=== PATIENT | female | born 1950 | race Caucasian/White ===

== ENCOUNTER 2020-12-06 08:46 | Outpatient (REF) | payer MEDICARE, SELFPAY ==
[2020-12-06 11:41] LABS: Alanine Aminotransferase 18 U/L (0-31); Albumin Level 4.5 g/dL (3.5-5.0); Alkaline Phosphatase 65 U/L (39-117); Anion Gap 15 (12-20); Aspartate Amino Transferase 24 U/L (5-31); Bilirubin Total 1.3 mg/dL (0.0-1.0); Blood Urea Nitrogen 18 mg/dL (9-16); Calcium 9.2 mg/dL (8.4-10.2); Carbon Dioxide 24 mmol/L (22-29); Chloride 105 mmol/L (96-108); Estimated Glomerular Filt Rate > 60; Glucose Random 88 mg/dL (60-115); Potassium 4.3 mmol/L (3.3-5.1); Sodium 140 mmol/L (135-145); Total Protein 7.5 g/dL (6.5-8.0)
== END 2020-12-06 08:47 | disposition home or self-care (01) ==
LOC: HO.HMGCLDS 08:46
PROVIDERS: PCP Internal Medicine; Visit Provider Internal Medicine
DX: E78.9 Disorder of lipoprotein metabolism, unspecified (principal); I10 Essential (primary) hypertension
CPT/HCPCS: 36415; 80053

== ENCOUNTER 2021-08-08 07:43 | Outpatient (REF) | payer MEDICARE, SELFPAY ==
[2021-08-08 11:49] LABS: Alanine Aminotransferase 23 U/L (0-31); Albumin Level 4.2 g/dL (3.5-5.0); Alkaline Phosphatase 63 U/L (39-117); Anion Gap 11 (12-20); Aspartate Amino Transferase 22 U/L (5-31); Bilirubin Total 1.3 mg/dL (0.0-1.0); Blood Urea Nitrogen 18 mg/dL (9-16); Calcium 9.3 mg/dL (8.4-10.2); Carbon Dioxide 27 mmol/L (22-29); Chloride 107 mmol/L (96-108); Cholesterol 134 mg/dL; Estimated Glomerular Filt Rate > 60; Glucose Fasting 92 mg/dL (60-99); HDL Cholesterol 60 mg/dL; LDL Cholesterol Calculated 61 mg/dl; Potassium 4.9 mmol/L (3.3-5.1); Sodium 140 mmol/L (135-145); Total Protein 7.1 g/dL (6.5-8.0); Triglycerides 65 mg/dL
[2021-08-08 12:14] LABS: TSH reflex Free T4 0.96 uIU/mL (0.32-4.0)
[2021-08-08 12:19] LABS: Vitamin B12 569 pg/mL (200-900)
[2021-08-13 13:31] LABS: Vitamin D 25-OH, D2 <4 ng/mL; Vitamin D 25-OH, D3 46 ng/mL; Vitamin D 25-OH, Total 46 ng/mL (30-100)
== END 2021-08-08 07:44 | disposition home or self-care (01) ==
LOC: HO.HMGCLDS 07:43
PROVIDERS: Visit Provider Internal Medicine
DX: Z00.01 Encounter for general adult medical examination with abnormal findings (principal); I10 Essential (primary) hypertension; E78.9 Disorder of lipoprotein metabolism, unspecified
CPT/HCPCS: 36415; 80053; 80061; 82306; 82607; 84443

== ENCOUNTER 2022-05-29 09:03 | Outpatient (REF) | payer MEDICARE, SELFPAY ==
[2022-05-29 11:55] LABS: Hematocrit 34.1 % (37.0-47.0); Hemoglobin 11.5 g/dl (12.0-16.0); Mean Corpuscular HGB Conc 33.7 g/dl (31.0-35.0); Mean Corpuscular Hemoglobin 44.1 pg (27.0-33.0); Mean Platelet Volume 11.3 fL (9.4-12.3); Platelet Count 269 X10*3/uL (160-400); Red Blood Count 2.61 X10*6/uL (4.20-5.50)
[2022-05-29 11:58] LABS: Mean Corpuscular Volume 130.7 fL (80.0-98.0); WBC ABN SCTR FOR CBC 1
[2022-05-29 12:42] LABS: Band Neutrophils Percent 0 % (3-5); Lymphocytes Percent Manual 19 % (20-40); Monocytes Percent Manual 8 % (2-11); Neutrophils Percent Manual 73 % (45-73)
[2022-05-29 12:43] LABS: Hypersegmented Neutrophils PRESENT; Large Platelet PRESENT; Platelet Estimate NORMAL (NORMAL); Platelet Morphology Comment NOTED; RBC Morphology NOTED
[2022-05-29 12:45] LABS: Macrocytosis 2+ (15-30) /OIF
[2022-05-29 12:46] LABS: Polychromasia 1+ (0-2) /OIF; Tear Drop Cells 1+ (0-2) /OIF
[2022-05-29 12:47] LABS: Lymphocytes Absolute Manual 0.8 X10*3/uL (1.2-4.9); Monocytes Absolute Manual 0.3 X10*3/uL (0.1-1.2); White Blood Count 4.1 X10*3/uL (4.8-10.8)
[2022-05-29 12:51] LABS: Alanine Aminotransferase 18 U/L (0-31); Albumin Level 4.3 g/dL (3.5-5.0); Alkaline Phosphatase 55 U/L (39-117); Anion Gap 12 (12-20); Aspartate Amino Transferase 25 U/L (5-31); Bilirubin Total 1.2 mg/dL (0.0-1.0); Blood Urea Nitrogen 14 mg/dL (9-16); Calcium 9.4 mg/dL (8.4-10.2); Carbon Dioxide 28 mmol/L (22-29); Chloride 104 mmol/L (96-108); Cholesterol 144 mg/dL; Estimated Glomerular Filt Rate > 60; Glucose Fasting 100 mg/dL (60-99); HDL Cholesterol 65 mg/dL; LDL Cholesterol Calculated 65 mg/dl; Potassium 4.3 mmol/L (3.3-5.1); Sodium 140 mmol/L (135-145); Total Protein 7.1 g/dL (6.5-8.0); Triglycerides 74 mg/dL
== END 2022-05-29 09:04 | disposition home or self-care (01) ==
LOC: HO.HMGCLDS 09:03
PROVIDERS: PCP Internal Medicine; Visit Provider Internal Medicine
DX: E78.9 Disorder of lipoprotein metabolism, unspecified (principal); I10 Essential (primary) hypertension; Z86.711 Personal history of pulmonary embolism
CPT/HCPCS: 36415; 80053; 80061; 85007; 85027

== ENCOUNTER 2022-11-27 08:19 | Outpatient (AMB) | payer MEDICARE, SELFPAY ==
--- NOTE | 2022-11-27 08:20 | MHC.PC.OV ---
Vital Signs 11/27/22 08:23 Height 5 ft 4 in Weight 154 lb 2 oz BMI 26.5 BP 142/78 H Blood Pressure Location Rt brachial Position Sitting Pulse 68 Pulse Source Pulse Oximeter Pulse Oximetry (%) 98 Oxygen Delivery Method Room Air Intake Visit Reasons: PE Allergies No Known Allergies Allergy (Verified 11/27/22 08:24) Medication List - Last Reconciled 11/27/22 by Mars Balbuena MD apixaban (Eliquis) 5 mg PO BID aspirin (Adult Low Dose Aspirin) 81 mg PO DAILY atorvastatin 20 mg PO BEDTIME 90 days calcium carbonate (Calcium) 600 mg PO BID cholecalciferol (vitamin D3) 2,000 units PO DAILY hydroxyurea 500 mg PO DAILY lisinopril 2.5 mg PO DAILY Tobacco use date assessed: 11/27/22 Fall risk assessment: No Falls in past year Last assessed Fall Risk: 11/27/22 Dental Screening Dental Screen Date: 11/27/22 Did you have a dental visit in the last 12 months?: Yes Did you have a dental problem in the last 6 months where you did not have access to dental care?: No Was dental information given to patient?: No HPI PE HPI Details Patient is a 72-year-old female came in today for her physical exam Patient is doing well she is still walking the dogs and is physically active. Mammogram was May of this year Bone density was in June patient have osteopenia she is taking calcium and vitamin-D She was seeing Rheumatology Dr. Garcia at [facility] for osteoarthritis But no longer going fair patient says that she is doing well.? On lisinopril and atorvastatin through this office Blood pressure is stable at home, patient is monitoring it and it usually runs below 130 systolic. History of PE, taking Eliquis through hematology Dr. Richmond at [facility] and hydroxyurea Follow-up 6 months? [facility] Surgical History No pertinent past surgical history Family History Father Stomach cancer Mother Multiple myeloma Social History Housing: House Patient Tobacco Use Status: Never used Tobacco e-Cigarette/Vaping Use: Never Used Second Hand Smoke Exposure: Yes (years ago ) service: No Current occupational status: retired Cognitive needs: No Hearing needs: No Vision needs: Yes Questionnaire Thrive Questionnaire Date Thrive assessed: 05/29/22 AUDIT C Alcohol Use Questionnaire (AUDIT-C) 1. How often do you have a drink containing alcohol?: Never 3. How often do you have six or more drinks on one occasion?: Never Total Score: 0 Score Reviewed/Action Taken: Yes IVET-7 AMB Questionnaire IVET-7 Date IVET - 7 assessed: 05/29/22 Source: Developed by Drs. Aden Dimas, Nancy Hamilton, Bassam Osullivan and colleagues, with an educational elizabeth from [employer]. Review of Systems Const Denies chills, Denies fever(s) and Denies headache(s) Eyes Denies blurry vision ENT Denies headache(s), Denies nasal discharge, Denies nasal obstruction, Denies odynophagia and Denies sinus pain Card Denies chest pain at rest and Denies chest pain with activity Resp Denies cough and Denies hemoptysis GI Denies diarrhea, Denies odynophagia, Denies vomiting and Denies hematemesis Reports as per HPI Musc Denies abnormal gait Skin/Breast Reports as per HPI Neuro Denies Neuro-related abnormal movements, Denies Abnormal speech present, Denies abnormal gait, Denies headache(s) and Denies Sensory deficit (Neuro) Psych Denies mood swings and Denies paranoia Endo Reports as per HPI Sal/Lymph Reports as per HPI Aller/Immun Reports as per HPI Physical exam (Primary Care) Vital Signs: Last Vital Signs Pulse 68 11/27/22 08:23 BP 142/78 H 11/27/22 08:23 Pulse Ox 98 11/27/22 08:23 Oxygen Delivery Method Room Air 11/27/22 08:23 BMI result Body Mass Index 26.5 Tobacco/Smoking Status: Tobacco use Status Tobacco use date assessed 11/27/22 11/27/22 08:25 Patient Tobacco Use Status Never used Tobacco 11/27/22 08:21 e-Cigarette/Vaping Use Never Used 11/27/22 08:21 Thrive Assessment: Date of Thrive Assessment Date Thrive assessed 05/29/22 11/27/22 08:21 Const General: cooperative, comfortable and no acute distress Orientation/consciousness: patient oriented x3 HENMT Head: Yes normocephalic and Yes atraumatic Eyes General: appearance normal, both eyes and all related structures Pupils: Equal, round and reactive pupils present EOM: EOMs intact bilaterally Neck Neck: Yes supple and No lymphadenopathy Thyroid: Thyroid normal Lymphatic: no lymphadenopathy noted Resp Effort & Inspection: normal respiratory effort and able to speak in complete sentences Auscultation: clear to auscultation bilaterally Cardio Heart sounds: S1 normal heart sound present and S2 normal heart sound present GI Palpation (GI): Soft to palpation and nontender Auscultation: normal bowel sounds General: Yes no CVA tenderness Back/Spine/Pelvis Back: no CVA tenderness Skin General skin exam: elasticity normal and turgor normal Neuro General: patient oriented x3 and gait normal Cranial nerves: Yes Equal, round and reactive pupils present Speech: No Abnormal speech present Sensory Exam: No Sensory deficit (Neuro) Coordination: tandem gait normal and Romberg test negative Extrem General: Yes normal exam except as noted and No edema Assessment and Plan Assessment & Plan (1) Encounter for general adult medical examination with abnormal findings: Code(s): Z00.01 - Encounter for general adult medical examination with abnormal findings (2) Lipid disorder: Code(s): E78.9 - Disorder of lipoprotein metabolism, unspecified (3) Hypertension, essential: Code(s): I10 - Essential (primary) hypertension (4) History of pulmonary embolism: Code(s): Z86.711 - Personal history of pulmonary embolism Plan Patient is a 72-year-old female came in today for her physical exam Patient is doing well she is still walking the dogs and is physically active. Mammogram was May of this year Bone density was in June patient have osteopenia she is taking calcium and vitamin-D She was seeing Rheumatology Dr. Garcia at [facility] for osteoarthritis But no longer going fair patient says that she is doing well.? On lisinopril and atorvastatin through this office Blood pressure is stable at home, patient is monitoring it and it usually runs below 130 systolic. History of PE, taking Eliquis through hematology Dr. Richmond at [facility] and hydroxyurea Breast exam was not done as patient says that she does her own breast exams and is mammogram is up to date Follow-up 6 months? Orders: Orders Comprehensive [place]. Panel Fast Today E78.9 - Disorder of lipoprotein metabolism, unspecified, I10 - Essential (primary) hypertension, Z00.01 - Encounter for general adult medical examination with abnormal findings, Z86.711 - Personal history of pulmonary embolism Lipid Panel Today E78.9 - Disorder of lipoprotein metabolism, unspecified, I10 - Essential (primary) hypertension, Z00.01 - Encounter for general adult medical examination with abnormal findings, Z86.711 - Personal history of pulmonary embolism Complete Blood Count Auto Diff Today E78.9 - Disorder of lipoprotein metabolism, unspecified, I10 - Essential (primary) hypertension, Z00.01 - Encounter for general adult medical examination with abnormal findings, Z86.711 - Personal history of pulmonary embolism Coding Level of Care Code Est Pt Prev Care >65y(76410) Diagnoses Encounter for general adult medical examination with abnormal findings Z00.01 Lipid disorder E78.9 Hypertension, essential I10 History of pulmonary embolism Z86.711
[2022-11-27 08:23] VITALS: BP 142/78; PULSE 68; O2SAT 98; BMI 26.5
== END 2022-11-27 09:44 | disposition home or self-care (01) ==
PROVIDERS: Visit Provider Internal Medicine
DX: Z00.01 Encounter for general adult medical examination with abnormal findings (principal); E78.9 Disorder of lipoprotein metabolism, unspecified; I10 Essential (primary) hypertension; Z86.711 Personal history of pulmonary embolism
CPT/HCPCS: 99397

== ENCOUNTER 2022-11-27 09:01 | Outpatient (REF) | payer MEDICARE, SELFPAY ==
[2022-11-27 12:24] LABS: Alanine Aminotransferase 18 U/L (0-31); Albumin Level 4.3 g/dL (3.5-5.0); Alkaline Phosphatase 58 U/L (39-117); Anion Gap 9 (12-20); Aspartate Amino Transferase 25 U/L (5-31); Bilirubin Total 1.3 mg/dL (0.0-1.0); Blood Urea Nitrogen 15 mg/dL (9-16); Calcium 9.5 mg/dL (8.4-10.2); Carbon Dioxide 27 mmol/L (22-29); Chloride 106 mmol/L (96-108); Cholesterol 141 mg/dL; Estimated Glomerular Filt Rate > 60; Glucose Fasting 96 mg/dL (60-99); HDL Cholesterol 67 mg/dL; LDL Cholesterol Calculated 61 mg/dl; Potassium 4.1 mmol/L (3.3-5.1); Sodium 138 mmol/L (135-145); Total Protein 7.5 g/dL (6.5-8.0); Triglycerides 67 mg/dL
[2022-11-27 12:35] LABS: Hematocrit 33.6 % (37.0-47.0); Hemoglobin 11.3 g/dl (12.0-16.0); Mean Corpuscular HGB Conc 33.6 g/dl (31.0-35.0); Mean Corpuscular Hemoglobin 43.8 pg (27.0-33.0); Mean Platelet Volume 11.3 fL (9.4-12.3); Platelet Count 259 X10*3/uL (160-400); Red Blood Count 2.58 X10*6/uL (4.20-5.50); Red Cell Distribution Width 12.8 % (11.0-16.0)
[2022-11-27 12:38] LABS: Mean Corpuscular Volume 130.2 fL (80.0-98.0); WBC ABN SCTR FOR CBC 1
[2022-11-27 12:43] LABS: Band Neutrophils Percent 0 % (3-5); Lymphocytes Percent Manual 31 % (20-40); Monocytes Percent Manual 4 % (2-11); Neutrophils Percent Manual 65 % (45-73)
[2022-11-27 12:44] LABS: Macrocytosis 2+ (15-30) /OIF; RBC Morphology NOTED
[2022-11-27 12:45] LABS: Platelet Estimate NORMAL (NORMAL); Platelet Morphology Comment NORMAL; Polychromasia 1+ (0-2) /OIF; Tear Drop Cells 1+ (0-2) /OIF
[2022-11-27 12:46] LABS: Lymphocytes Absolute Manual 1.1 X10*3/uL (1.2-4.9); Monocytes Absolute Manual 0.1 X10*3/uL (0.1-1.2); Neutrophils Absolute Manual 2.4 X10*3/uL (2.0-8.3); White Blood Count 3.7 X10*3/uL (4.8-10.8)
== END 2022-11-27 09:02 | disposition home or self-care (01) ==
LOC: HO.HMGCLDS 09:01
PROVIDERS: PCP Internal Medicine; Visit Provider Internal Medicine
DX: Z00.01 Encounter for general adult medical examination with abnormal findings (principal); I10 Essential (primary) hypertension; E78.9 Disorder of lipoprotein metabolism, unspecified; Z86.711 Personal history of pulmonary embolism
CPT/HCPCS: 36415; 80053; 80061; 85007; 85025; 85027

== ENCOUNTER 2023-06-04 09:41 | Outpatient (AMB) | payer MEDICARE, SELFPAY ==
[2023-06-04 09:47] VITALS: BP 152/86; PULSE 62; O2SAT 100; BMI 27.2
--- NOTE | 2023-06-04 09:47 | MHC.PC.OV ---
Vital Signs 06/04/23 09:47 Height 5 ft 4 in Weight 158 lb 6 oz BMI 27.2 BP 152/86 H Blood Pressure Location Rt brachial Position Sitting Pulse 62 Pulse Source Pulse Oximeter Pulse Oximetry (%) 100 Oxygen Delivery Method Room Air Intake Visit Reasons: 6 month fu Allergies No Known Allergies Allergy (Verified 06/04/23 09:47) Medication List - Last Reviewed 06/04/23 by Mera Novak MA apixaban (Eliquis) 5 mg PO BID atorvastatin 20 mg PO BEDTIME 90 days calcium carbonate (Calcium) 600 mg PO BID cholecalciferol (vitamin D3) 2,000 units PO DAILY hydroxyurea 500 mg PO DAILY lisinopril 2.5 mg PO DAILY Tobacco use date assessed: 06/04/23 Fall risk assessment: No Falls in past year Last assessed Fall Risk: 06/04/23 Dental Screening Dental Screen Date: 06/04/23 Did you have a dental visit in the last 12 months?: Yes Did you have a dental problem in the last 6 months where you did not have access to dental care?: No Was dental information given to patient?: Patient has dentist HPI 6 month fu HPI Details Patient is a 72-year-old female Patient is doing well she is still walking the dogs and is physically active. On lisinopril and atorvastatin through this office Blood pressure is stable at home, patient is monitoring it and it usually runs below 130 systolic. However when she comes here it is above 140, she is taking lisinopril 2.5 mg only, we should go up on the dose to 5 mg History of PE, taking Eliquis through hematology Dr. Richmond at [facility] and hydroxyurea Last time patient had labs her white count was slightly low as well as hemoglobin She is due for labs order placed to be done today Follow-up 6 months? [facility] Surgical History No pertinent past surgical history Family History Father Stomach cancer Mother Multiple myeloma Social History Housing: House Patient Tobacco Use Status: Never used Tobacco e-Cigarette/Vaping Use: Never Used Second Hand Smoke Exposure: Yes (years ago ) service: No Current occupational status: retired Cognitive needs: No Hearing needs: No Vision needs: Yes Questionnaire PHQ-9 Over the last 2 weeks, how often have you been bothered by any of the following problems? 1. Little interest or pleasure in doing things: not at all 2. Feeling down, depressed, or hopeless: not at all 3. Trouble falling or staying asleep, or sleeping too much: not at all 4. Feeling tired or having little energy: not at all 5. Poor appetite or overeating: not at all 6. Feeling bad about yourself - or that you are a failure or have let yourself or your family down: not at all 7. Trouble concentrating on things, such as reading the newspaper or watching television: not at all 8. Moving or speaking so slowly that other people could have noticed. Or the opposite - being so fidgety or restless that you have been moving around a lot more than usual: not at all 9. Thoughts that you would be better off or of hurting yourself in some way: not at all Total score: 0 Depression Screening Interpretation: Negative Depression Screening Done: Yes 77992 - PHQ-9 Billing: Yes Source: Developed by Drs. Aden Dimas, Nancy Hamilton, Bassam Osullivan and colleagues, with an educational elizabeth from [email or web address]. Thrive Questionnaire Date Thrive assessed: 06/04/23 I am a: Patient What is your living situation today?: I have a steady place to live Within the past 12 months, did the food you bought not last and you didn't have the money to get more?: Never true Within the past 12 months, did you worry whether your food would run out before you got money to buy more?: Never true Do you have trouble paying for medicines?: No Do you have trouble getting transportation to medical appointments?: No Do you have trouble paying your heating and electricity bill?: No Do you have trouble taking care of your child, family member or friend?: No Do you have trouble with day-to-day activities such as bathing, preparing meals, shopping, managing finances, etc.?: No Are you currently unemployed and looking for a job?: No Are you interested in more education?: No Please select the resources that you would like help with: None Currently or been in a relationship where the following occur: no concerns reported THRIVE Score: 0 AUDIT C Alcohol Use Questionnaire (AUDIT-C) 1. How often do you have a drink containing alcohol?: Monthly or less 2. How many drinks containing alcohol do you have on a typical day when you are drinking?: 1 or 2 3. How often do you have six or more drinks on one occasion?: Never Total Score: 1 Score Reviewed/Action Taken: Yes IVET-7 AMB Questionnaire IVET-7 Date IVET - 7 assessed: 06/04/23 Feeling nervous, anxious, or on edge: 0 = Not at all Not being able to stop or control worryin = Not at all Worrying too much about different things: 0 = Not at all Trouble relaxin = Not at all Being so restless that it is hard to sit still: 0 = Not at all Becoming easily annoyed or irritable: 0 = Not at all Feeling afraid as if something awful might happen: 0 = Not at all Total IVET-7 score (0-4 normal; 5-9 mild; 10-14 moderate; 15-21 severe): 0 Source: Developed by Drs. Aden Dimas, Nancy Hamilton, Bassam Osullivan and colleagues, with an educational elizabeth from [email or web address]. IVET-7 Assessment Billing IVET-7 Assessment Tool: IVET-7 Assessment 95751 Review of Systems Const Denies chills and Denies fever(s) ENT Denies epistaxis and Denies nasal discharge Card Denies chest pain Resp Denies chest congestion, Denies cough and Denies hemoptysis GI Denies diarrhea and Denies nausea Skin/Breast Denies rash Neuro Reports no additional complaints Psych Reports no additional complaints Endo Reports no additional complaints Physical exam (Primary Care) Vital Signs: Last Vital Signs Pulse 62 06/04/23 09:47 BP 152/86 H 06/04/23 09:47 Pulse Ox 100 06/04/23 09:47 Oxygen Delivery Method Room Air 06/04/23 09:47 BMI result Body Mass Index 27.2 Tobacco/Smoking Status: Tobacco use Status Tobacco use date assessed 06/04/23 06/04/23 09:49 Patient Tobacco Use Status Never used Tobacco 06/04/23 09:49 e-Cigarette/Vaping Use Never Used 06/04/23 09:49 PHQ-9: PHQ-9 Score PHQ-9: Total score 0 06/04/23 10:02 Depression Screening Interpretation: Negative Thrive Assessment: Date of Thrive Assessment Date Thrive assessed 06/04/23 06/04/23 10:02 Currently or been in a relationship where the following occur: no concerns reported Const General: cooperative, comfortable and no acute distress Orientation/consciousness: patient oriented x3 HENMT Head: Yes normocephalic Eyes General: appearance normal, both eyes and all related structures Neck Neck: Yes supple Resp Effort & Inspection: normal respiratory effort, no cough and no stridor Cardio Rhythm: regular rhythm Heart sounds: S1 normal heart sound present and S2 normal heart sound present Skin General skin exam: turgor normal Neuro General: patient oriented x3, tone normal and moves all extremities Extrem Right lower extremity: no edema Left lower extremity: no edema Assessment and Plan Assessment & Plan (1) Hypertension, essential: Code(s): I10 - Essential (primary) hypertension (2) Lipid disorder: Code(s): E78.9 - Disorder of lipoprotein metabolism, unspecified (3) History of pulmonary embolism: Code(s): Z86.711 - Personal history of pulmonary embolism (4) Neutropenia: Code(s): D70.9 - Neutropenia, unspecified Qualifiers: Neutropenia type: unspecified Qualified Code(s): D70.9 - Neutropenia, unspecified (5) Anemia: Code(s): D64.9 - Anemia, unspecified Qualifiers: Anemia type: other cause Other causes of anemia: chronic disease, other Qualified Code(s): D63.8 - Anemia in other chronic diseases classified elsewhere Plan Patient is a 72-year-old female Patient is doing well she is still walking the dogs and is physically active. On lisinopril and atorvastatin through this office Blood pressure is stable at home, patient is monitoring it and it usually runs below 130 systolic. However when she comes here it is above 140, she is taking lisinopril 2.5 mg only, we should go up on the dose to 5 mg History of PE, taking Eliquis through hematology Dr. Richmond at [facility] and hydroxyurea Last time patient had labs her white count was slightly low as well as hemoglobin She is due for labs order placed to be done today Follow-up 6 months? Orders: Orders Complete Blood Count Auto Diff Today D64.9 - Anemia, unspecified, D70.9 - Neutropenia, unspecified, E78.9 - Disorder of lipoprotein metabolism, unspecified, I10 - Essential (primary) hypertension, Z86.711 - Personal history of pulmonary embolism Comprehensive Met. Panel Today D64.9 - Anemia, unspecified, D70.9 - Neutropenia, unspecified, E78.9 - Disorder of lipoprotein metabolism, unspecified, I10 - Essential (primary) hypertension, Z86.711 - Personal history of pulmonary embolism LDL Cholesterol Direct Today D64.9 - Anemia, unspecified, D70.9 - Neutropenia, unspecified, E78.9 - Disorder of lipoprotein metabolism, unspecified, I10 - Essential (primary) hypertension, Z86.711 - Personal history of pulmonary embolism Coding Level of Care Code Est Pt Level 4 (89851) Diagnoses Hypertension, essential I10 Lipid disorder E78.9 History of pulmonary embolism Z86.711 Neutropenia, unspecified type D70.9 Neutropenia type: unspecified Anemia in other chronic diseases classified elsewhere D63.8 Anemia type: other cause Other causes of anemia: chronic disease, other Additional Codes IVET-7 Assessment Billing - IVET-7 Assessment Tool: IVET-7 Assessment [id number] ([id number])
== END 2023-06-04 16:19 | disposition home or self-care (01) ==
PROVIDERS: PCP Internal Medicine; Visit Provider Internal Medicine
DX: I10 Essential (primary) hypertension (principal); E78.9 Disorder of lipoprotein metabolism, unspecified; Z86.711 Personal history of pulmonary embolism; D70.9 Neutropenia, unspecified; D63.8 Anemia in other chronic diseases classified elsewhere
CPT/HCPCS: 99214

== ENCOUNTER 2023-06-04 10:02 | Outpatient (REF) | payer MEDICARE, SELFPAY ==
[2023-06-04 13:44] LABS: Hematocrit 31.5 % (37.0-47.0); Hemoglobin 10.6 g/dl (12.0-16.0); Mean Corpuscular HGB Conc 33.7 g/dl (31.0-35.0); Mean Corpuscular Hemoglobin 44.5 pg (27.0-33.0); Mean Corpuscular Volume 132.4 fL (80.0-98.0); Mean Platelet Volume 11.1 fL (9.4-12.3); Platelet Count 228 X10*3/uL (160-400); Red Blood Count 2.38 X10*6/uL (4.20-5.50); Red Cell Distribution Width 13.9 % (11.0-16.0); White Blood Count 4.2 X10*3/uL (4.8-10.8)
[2023-06-04 13:54] LABS: Alanine Aminotransferase 18 U/L (0-31); Albumin Level 4.1 g/dL (3.5-5.0); Alkaline Phosphatase 57 U/L (39-117); Anion Gap 12 (12-20); Aspartate Amino Transferase 24 U/L (5-31); Bilirubin Total 1.2 mg/dL (0.0-1.0); Blood Urea Nitrogen 13 mg/dL (9-16); Calcium 10.1 mg/dL (8.4-10.2); Carbon Dioxide 25 mmol/L (22-29); Chloride 106 mmol/L (96-108); Estimated Glomerular Filt Rate > 60; Glucose Random 81 mg/dL (60-115); Potassium 4.4 mmol/L (3.3-5.1); Sodium 139 mmol/L (135-145); Total Protein 7.4 g/dL (6.5-8.0)
[2023-06-04 14:41] LABS: Band Neutrophils Percent 4 % (3-5); Lymphocytes Absolute Manual 1.1 X10*3/uL (1.2-4.9); Lymphocytes Percent Manual 27 % (20-40); Macrocytosis 1+ (5-14) /OIF; Monocytes Absolute Manual 0.3 X10*3/uL (0.1-1.2); Monocytes Percent Manual 8 % (2-11); Neutrophils Absolute Manual 2.7 X10*3/uL (2.0-8.3); Neutrophils Percent Manual 61 % (45-73); RBC Morphology NOTED
[2023-06-04 14:42] LABS: Tear Drop Cells 1+ (0-2) /OIF
[2023-06-04 14:44] LABS: Large Platelet PRESENT; Platelet Estimate NORMAL (NORMAL); Platelet Morphology Comment NOTED; Polychromasia 1+ (0-2) /OIF
[2023-06-06 01:49] LABS: LDL Cholesterol Direct 55 mg/dL (<100)
== END 2023-06-04 10:03 | disposition home or self-care (01) ==
LOC: HO.HMGCLDS 10:02
PROVIDERS: PCP Internal Medicine; Visit Provider Internal Medicine
DX: I10 Essential (primary) hypertension (principal); E78.9 Disorder of lipoprotein metabolism, unspecified; D70.9 Neutropenia, unspecified; D64.9 Anemia, unspecified; Z86.711 Personal history of pulmonary embolism
CPT/HCPCS: 36415; 80053; 83721; 85007; 85027

== ENCOUNTER 2023-12-03 08:45 | Outpatient (AMB) | payer MEDICARE, SELFPAY ==
[2023-12-03 08:46] VITALS: BP 174/106; PULSE 94; O2SAT 98; BMI 27.5
--- NOTE | 2023-12-03 08:46 | MHC.PC.OV ---
Vital Signs 12/03/23 08:46 Height 5 ft 4 in Weight 160 lb 8 oz BMI 27.5 BP 174/106 H Blood Pressure Location Lt brachial Position Sitting Pulse 94 Pulse Source Pulse Oximeter Pulse Oximetry (%) 98 Oxygen Delivery Method Room Air Intake Visit Reasons: PE - see comments Allergies No Known Allergies Allergy (Verified 12/03/23 08:50) Medication List - Last Reconciled 12/03/23 by Mars Balbuena MD apixaban (Eliquis) 5 mg PO BID atorvastatin 20 mg PO BEDTIME 90 days calcium carbonate (Calcium 600) 600 mg PO BID cholecalciferol (vitamin D3) 2,000 units PO DAILY hydroxyurea 500 mg PO DAILY lisinopril 2.5 mg PO DAILY Tobacco use date assessed: 12/03/23 Fall risk assessment: 1 Fall in past year Last assessed Fall Risk: 12/03/23 Dental Screening Dental Screen Date: 12/03/23 Did you have a dental visit in the last 12 months?: Yes Did you have a dental problem in the last 6 months where you did not have access to dental care?: No Was dental information given to patient?: Patient has dentist HPI PE - see comments HPI Details Patient is 73-year-old female came in today for physical exam Mammogram is up-to-date Patient had Cologuard December of last year which was negative She no longer having Pap smears Blood pressure is elevated today at 174/106, I rechecked it after 15 minutes and it is 170 x 90 Patient says that she has been up all night because she had to drop her family member to airport And she was stressing out if she will make it to this appointment At home it is running around 120s and 110 systolic She is still on 2.5 mg of lisinopril We will book nursing visit so she can bring her machine and we can check that Meanwhile I would recommend to take extra 2.5 mg of lisinopril at home today Lab order placed to be done fasting Patient was seeing Dr. Richmond as she has history of pulmonary embolism And also have essential thrombocytosis, patient is taking hydroxyurea and Eliquis However Dr. Richmond has retiring and she does not have a new provider Patient is requesting if I can take over the medication Which I will and change her visit frequency to Q 3 months Patient had a fracture of right shoulder while hiking but it is healing well She is doing exercises at home still have some limitation in range of motion. [facility] Surgical History No pertinent past surgical history Family History Father Stomach cancer Mother Multiple myeloma Social History Housing: House Patient Tobacco Use Status: Never used Tobacco e-Cigarette/Vaping Use: Never Used Second Hand Smoke Exposure: Yes (years ago ) service: No Current occupational status: retired Cognitive needs: No Hearing needs: No Vision needs: Yes Questionnaire PHQ-9 Over the last 2 weeks, how often have you been bothered by any of the following problems? 1. Little interest or pleasure in doing things: not at all 2. Feeling down, depressed, or hopeless: not at all 3. Trouble falling or staying asleep, or sleeping too much: not at all 4. Feeling tired or having little energy: not at all 5. Poor appetite or overeating: not at all 6. Feeling bad about yourself - or that you are a failure or have let yourself or your family down: not at all 7. Trouble concentrating on things, such as reading the newspaper or watching television: not at all 8. Moving or speaking so slowly that other people could have noticed. Or the opposite - being so fidgety or restless that you have been moving around a lot more than usual: not at all 9. Thoughts that you would be better off or of hurting yourself in some way: not at all Total score: 0 Depression Screening Interpretation: Negative Depression Screening Done: Yes 15267 - PHQ-9 Billing: Yes Source: Developed by Drs. Aden Dimas, Nancy Hamilton, Bassam Osullivan and colleagues, with an educational elizabeth from [employer]. Thrive Questionnaire Date Thrive assessed: 12/03/23 I am a: Patient What is your living situation today?: I have a steady place to live Within the past 12 months, did the food you bought not last and you didn't have the money to get more?: Never true Within the past 12 months, did you worry whether your food would run out before you got money to buy more?: Never true Do you have trouble paying for medicines?: No Do you have trouble getting transportation to medical appointments?: No Do you have trouble paying your heating and electricity bill?: No Do you have trouble taking care of your child, family member or friend?: No Do you have trouble with day-to-day activities such as bathing, preparing meals, shopping, managing finances, etc.?: No Are you currently unemployed and looking for a job?: No Are you interested in more education?: No Please select the resources that you would like help with: Housing/Senior Living Currently or been in a relationship where the following occur: No concerns reported THRIVE Score: 0 AUDIT C Alcohol Use Questionnaire (AUDIT-C) 1. How often do you have a drink containing alcohol?: Monthly or less 2. How many drinks containing alcohol do you have on a typical day when you are drinking?: 1 or 2 3. How often do you have six or more drinks on one occasion?: Never Total Score: 1 Score Reviewed/Action Taken: Yes IVET-7 AMB Questionnaire IVET-7 Date IVET - 7 assessed: 12/03/23 Feeling nervous, anxious, or on edge: 0 = Not at all Not being able to stop or control worryin = Not at all Worrying too much about different things: 0 = Not at all Trouble relaxin = Not at all Being so restless that it is hard to sit still: 0 = Not at all Becoming easily annoyed or irritable: 0 = Not at all Feeling afraid as if something awful might happen: 0 = Not at all Total IVET-7 score (0-4 normal; 5-9 mild; 10-14 moderate; 15-21 severe): 0 Source: Developed by Drs. Aden Dimas, Nancy Hamilton, Bassam Osullivan and colleagues, with an educational elizabeth from [employer]. IVET-7 Assessment Billing IVET-7 Assessment Tool: IVET-7 Assessment 08388 Review of Systems Const Denies chills, Denies fever(s) and Denies headache(s) Eyes Denies blurry vision ENT Denies headache(s), Denies nasal discharge, Denies nasal obstruction, Denies odynophagia and Denies sinus pain Card Denies chest pain at rest and Denies chest pain with activity Resp Denies cough and Denies hemoptysis GI Denies diarrhea, Denies odynophagia, Denies vomiting and Denies hematemesis Reports as per HPI Musc Denies abnormal gait Skin/Breast Reports as per HPI Neuro Denies Neuro-related abnormal movements, Denies Abnormal speech present, Denies abnormal gait, Denies headache(s) and Denies Sensory deficit (Neuro) Psych Denies mood swings and Denies paranoia Endo Reports as per HPI Sal/Lymph Reports as per HPI Aller/Immun Reports as per HPI Physical exam (Primary Care) Vital Signs: Last Vital Signs Pulse 94 12/03/23 08:46 BP 174/106 H 12/03/23 08:46 Pulse Ox 98 12/03/23 08:46 Oxygen Delivery Method Room Air 12/03/23 08:46 BMI result Body Mass Index 27.5 Tobacco/Smoking Status: Tobacco use Status Tobacco use date assessed 12/03/23 12/03/23 08:51 Patient Tobacco Use Status Never used Tobacco 12/03/23 08:49 e-Cigarette/Vaping Use Never Used 12/03/23 08:49 PHQ-9: PHQ-9 Score PHQ-9: Total score 0 12/03/23 09:20 Depression Screening Interpretation: Negative Thrive Assessment: Date of Thrive Assessment Date Thrive assessed 12/03/23 12/03/23 08:51 Currently or been in a relationship where the following occur: No concerns reported Const General: cooperative, comfortable and no acute distress Orientation/consciousness: patient oriented x3 HENMT Head: Yes normocephalic and Yes atraumatic Eyes General: appearance normal, both eyes and all related structures Pupils: Equal, round and reactive pupils present EOM: EOMs intact bilaterally Neck Neck: Yes supple and No lymphadenopathy Thyroid: Thyroid normal Lymphatic: no lymphadenopathy noted Resp Effort & Inspection: normal respiratory effort and able to speak in complete sentences Auscultation: clear to auscultation bilaterally Cardio Heart sounds: S1 normal heart sound present and S2 normal heart sound present GI Palpation (GI): Soft to palpation and nontender Auscultation: normal bowel sounds General: Yes no CVA tenderness Back/Spine/Pelvis Back: no CVA tenderness Skin General skin exam: elasticity normal and turgor normal Neuro General: patient oriented x3 and gait normal Cranial nerves: Yes Equal, round and reactive pupils present Speech: No Abnormal speech present Sensory Exam: No Sensory deficit (Neuro) Coordination: tandem gait normal and Romberg test negative Extrem General: Yes normal exam except as noted and No edema Shoulder/upper arm images: 1. Limited range of motion secondary to fracture, healing and patient was to exercises at home Assessment and Plan Assessment & Plan (1) Encounter for general adult medical examination with abnormal findings: Code(s): Z00.01 - Encounter for general adult medical examination with abnormal findings (2) Lipid disorder: Code(s): E78.9 - Disorder of lipoprotein metabolism, unspecified (3) Hypertension, essential: Code(s): I10 - Essential (primary) hypertension (4) Neutropenia: Code(s): D70.9 - Neutropenia, unspecified Qualifiers: Neutropenia type: unspecified Qualified Code(s): D70.9 - Neutropenia, unspecified (5) Essential thrombocytosis: Code(s): D47.3 - Essential (hemorrhagic) thrombocythemia (6) Anemia: Code(s): D64.9 - Anemia, unspecified Qualifiers: Anemia type: other cause Other causes of anemia: chronic disease, other Qualified Code(s): D63.8 - Anemia in other chronic diseases classified elsewhere (7) History of pulmonary embolism: Code(s): Z86.711 - Personal history of pulmonary embolism (8) History of right shoulder fracture: Code(s): Z87.81 - Personal history of (healed) traumatic fracture Plan Patient is 73-year-old female came in today for physical exam Mammogram is up-to-date Patient had Cologuard December of last year which was negative She no longer having Pap smears Blood pressure is elevated today at 174/106, I rechecked it after 15 minutes and it is 170 x 90 Patient says that she has been up all night because she had to drop her family member to airport And she was stressing out if she will make it to this appointment At home it is running around 120s and 110 systolic She is still on 2.5 mg of lisinopril We will book nursing visit so she can bring her machine and we can check that Meanwhile I would recommend to take extra 2.5 mg of lisinopril at home today Lab order placed to be done fasting Patient was seeing Dr. Richmond as she has history of pulmonary embolism And also have essential thrombocytosis, patient is taking hydroxyurea and Eliquis However Dr. Richmond has retiring and she does not have a new provider Patient is requesting if I can take over the medication Which I will and change her visit frequency to Q 3 months Patient had a fracture of right shoulder while hiking but it is healing well She is doing exercises at home still have some limitation in range of motion. Orders: Orders Complete Blood Count Auto Diff Today D63.8 - Anemia in other chronic diseases classified elsewhere, D70.9 - Neutropenia, unspecified, E78.9 - Disorder of lipoprotein metabolism, unspecified, I10 - Essential (primary) hypertension, Z00.01 - Encounter for general adult medical examination with abnormal findings, Z86.711 - Personal history of pulmonary embolism Vitamin D 25-OH (D2 and D3) Today D63.8 - Anemia in other chronic diseases classified elsewhere, D70.9 - Neutropenia, unspecified, E78.9 - Disorder of lipoprotein metabolism, unspecified, I10 - Essential (primary) hypertension, Z00.01 - Encounter for general adult medical examination with abnormal findings, Z86.711 - Personal history of pulmonary embolism Comprehensive [place]. Panel Fast 1 Day D47.3 - Essential (hemorrhagic) thrombocythemia, D63.8 - Anemia in other chronic diseases classified elsewhere, D70.9 - Neutropenia, unspecified, E78.9 - Disorder of lipoprotein metabolism, unspecified, I10 - Essential (primary) hypertension, Z00.01 - Encounter for general adult medical examination with abnormal findings, Z86.711 - Personal history of pulmonary embolism Lipid Panel 1 Day D47.3 - Essential (hemorrhagic) thrombocythemia, D63.8 - Anemia in other chronic diseases classified elsewhere, D70.9 - Neutropenia, unspecified, E78.9 - Disorder of lipoprotein metabolism, unspecified, I10 - Essential (primary) hypertension, Z00.01 - Encounter for general adult medical examination with abnormal findings, Z86.711 - Personal history of pulmonary embolism Comprehensive [place]. Panel Fast Today D63.8 - Anemia in other chronic diseases classified elsewhere, D70.9 - Neutropenia, unspecified, E78.9 - Disorder of lipoprotein metabolism, unspecified, I10 - Essential (primary) hypertension, Z00.01 - Encounter for general adult medical examination with abnormal findings, Z86.711 - Personal history of pulmonary embolism Lipid Panel Today D63.8 - Anemia in other chronic diseases classified elsewhere, D70.9 - Neutropenia, unspecified, E78.9 - Disorder of lipoprotein metabolism, unspecified, I10 - Essential (primary) hypertension, Z00.01 - Encounter for general adult medical examination with abnormal findings, Z86.711 - Personal history of pulmonary embolism TSH reflex Free T4 Today D63.8 - Anemia in other chronic diseases classified elsewhere, D70.9 - Neutropenia, unspecified, E78.9 - Disorder of lipoprotein metabolism, unspecified, I10 - Essential (primary) hypertension, Z00.01 - Encounter for general adult medical examination with abnormal findings, Z86.711 - Personal history of pulmonary embolism Complete Blood Count Auto Diff 1 Day D47.3 - Essential (hemorrhagic) thrombocythemia, D63.8 - Anemia in other chronic diseases classified elsewhere, D70.9 - Neutropenia, unspecified, E78.9 - Disorder of lipoprotein metabolism, unspecified, I10 - Essential (primary) hypertension, Z00.01 - Encounter for general adult medical examination with abnormal findings, Z86.711 - Personal history of pulmonary embolism Vitamin D 25-OH (D2 and D3) 1 Day D47.3 - Essential (hemorrhagic) thrombocythemia, D63.8 - Anemia in other chronic diseases classified elsewhere, D70.9 - Neutropenia, unspecified, E78.9 - Disorder of lipoprotein metabolism, unspecified, I10 - Essential (primary) hypertension, Z00.01 - Encounter for general adult medical examination with abnormal findings, Z86.711 - Personal history of pulmonary embolism Vitamin B12 1 Day D47.3 - Essential (hemorrhagic) thrombocythemia, D63.8 - Anemia in other chronic diseases classified elsewhere, D70.9 - Neutropenia, unspecified, E78.9 - Disorder of lipoprotein metabolism, unspecified, I10 - Essential (primary) hypertension, Z00.01 - Encounter for general adult medical examination with abnormal findings, Z86.711 - Personal history of pulmonary embolism TSH reflex Free T4 1 Day D47.3 - Essential (hemorrhagic) thrombocythemia, D63.8 - Anemia in other chronic diseases classified elsewhere, D70.9 - Neutropenia, unspecified, E78.9 - Disorder of lipoprotein metabolism, unspecified, I10 - Essential (primary) hypertension, Z00.01 - Encounter for general adult medical examination with abnormal findings, Z86.711 - Personal history of pulmonary embolism Coding Level of Care Code Est Pt Level 4 (26776) Est Pt Prev Care >65y(46458) Diagnoses Encounter for general adult medical examination with abnormal findings Z00.01 Lipid disorder E78.9 Hypertension, essential I10 Neutropenia, unspecified type D70.9 Neutropenia type: unspecified Essential thrombocytosis D47.3 Anemia in other chronic diseases classified elsewhere D63.8 Anemia type: other cause Other causes of anemia: chronic disease, other History of pulmonary embolism Z86.711 History of right shoulder fracture Z87.81 Additional Codes IVET-7 Assessment Billing - IVET-7 Assessment Tool: IVET-7 Assessment 76995 ([id number])
== END 2023-12-03 09:16 | disposition home or self-care (01) ==
PROVIDERS: PCP Internal Medicine; Visit Provider Internal Medicine
DX: Z00.01 Encounter for general adult medical examination with abnormal findings (principal); D70.9 Neutropenia, unspecified; D47.3 Essential (hemorrhagic) thrombocythemia; E78.9 Disorder of lipoprotein metabolism, unspecified; I10 Essential (primary) hypertension; D63.8 Anemia in other chronic diseases classified elsewhere; Z86.711 Personal history of pulmonary embolism; Z87.81 Personal history of (healed) traumatic fracture
CPT/HCPCS: 99214; 99397

== ENCOUNTER 2023-12-04 07:35 | Outpatient (REF) | payer MEDICARE, SELFPAY ==
[2023-12-04 10:53] LABS: Alanine Aminotransferase 15 U/L (0-31); Albumin Level 4.2 g/dL (3.5-5.0); Alkaline Phosphatase 53 U/L (39-117); Anion Gap 10 (12-20); Aspartate Amino Transferase 19 U/L (5-31); Bilirubin Total 0.9 mg/dL (0.0-1.0); Blood Urea Nitrogen 15 mg/dL (9-16); Calcium 9.6 mg/dL (8.4-10.2); Carbon Dioxide 26 mmol/L (22-29); Chloride 108 mmol/L (96-108); Cholesterol 132 mg/dL (<200); Estimated Glomerular Filt Rate > 60; Glucose Fasting 93 mg/dL (60-99); HDL Cholesterol 66 mg/dL (>40); LDL Cholesterol Calculated 55 mg/dL (<100); Potassium 4.2 mmol/L (3.3-5.1); Sodium 140 mmol/L (135-145); Total Protein 7.3 g/dL (6.5-8.0); Triglycerides 59 mg/dL (<150)
[2023-12-04 11:02] LABS: Hemoglobin 11.1 g/dl (12.0-16.0); Mean Corpuscular HGB Conc 33.6 g/dl (31.0-35.0); Platelet Count 266 X10*3/uL (160-400); Red Blood Count 2.52 X10*6/uL (4.20-5.50); Red Cell Distribution Width 13.6 % (11.0-16.0); White Blood Count 3.9 X10*3/uL (4.8-10.8)
[2023-12-04 11:10] LABS: Vitamin B12 597 pg/mL (200-900)
[2023-12-04 11:14] LABS: Band Neutrophils Percent 1 % (3-5); Basophils Percent Manual 1 % (0-2); Eosinophils Percent Manual 1 % (0-4); Lymphocytes Absolute Manual 1.2 X10*3/uL (1.2-4.9); Lymphocytes Percent Manual 31 % (20-40); Metamyelocytes Absolute 0.1 X10*3/uL; Metamyelocytes Percent 2 %; Monocytes Absolute Manual 0.1 X10*3/uL (0.1-1.2); Monocytes Percent Manual 2 % (2-11); Neutrophils Absolute Manual 2.5 X10*3/uL (2.0-8.3); Neutrophils Percent Manual 62 % (45-73); TSH reflex Free T4 1.09 uIU/mL (0.32-4.0)
[2023-12-04 11:15] LABS: RBC Morphology NOTED
[2023-12-04 11:17] LABS: Macrocytosis 1+ (5-14) /OIF; Platelet Estimate NORMAL (NORMAL); Platelet Morphology Comment NORMAL; Tear Drop Cells 1+ (0-2) /OIF
[2023-12-08 16:33] LABS: Vitamin D 25-OH, D2 <4 ng/mL; Vitamin D 25-OH, D3 43 ng/mL; Vitamin D 25-OH, Total 43 ng/mL (30-100)
== END 2023-12-04 07:36 | disposition home or self-care (01) ==
LOC: HO.HMGCLDS 07:35
PROVIDERS: PCP Internal Medicine; Visit Provider Internal Medicine
DX: Z00.01 Encounter for general adult medical examination with abnormal findings (principal); E78.9 Disorder of lipoprotein metabolism, unspecified; I10 Essential (primary) hypertension; D70.9 Neutropenia, unspecified; D63.8 Anemia in other chronic diseases classified elsewhere; Z86.711 Personal history of pulmonary embolism; D47.3 Essential (hemorrhagic) thrombocythemia
CPT/HCPCS: 36415; 80053; 80061; 82306; 82607; 84443; 85007; 85025; 85027

== ENCOUNTER 2024-01-08 08:16 | Outpatient (REF) | payer MEDICARE, SELFPAY ==
--- NOTE | ~2024-01-08 | MM_ITS ---
EXAMINATION: BONE DENSITOMETRY CLINICAL INDICATION: Menopause. COMPARISON: This is the patient's baseline examination. TECHNIQUE: Using a [employer]xIt DXA System (software version: 13.1) manufactured by [employer], dual-energy x-ray absorptiometry was performed of the lumbar spine and left hip. The images are of good technical quality. Summary results are attached. FINDINGS: LEFT FEMUR, NECK: BMD 0.668 g/cm2, Z-score -1.0, T-score -2.7, osteoporosis. LEFT FEMUR, TOTAL: BMD 0.679 g/cm2, Z-score -1.1, T-score -2.6, osteoporosis. AP SPINE L1-L4: BMD 1.102 g/cm2, Z-score 0.8, T-score -0.7, normal. IDENTIFIED RISK FACTORS: Menopause, glucocorticoids (chronic). HISTORY OF FRACTURE: Shoulder. MEDICATIONS: Calcium, vitamin D. MM/XR DEXA axial skeleton IMPRESSION: 1. DIAGNOSIS: Severe osteoporosis based on the lowest T-score value of -2.7 in the femur neck and history of fracture of the shoulder applying World Health Organization criteria. 2. 10-YEAR FRACTURE RISK PREDICTION, FRAX: According to the guidelines, FRAX calculation should only be performed on patients in the osteopenia bone density category. Therefore, FRAX was not performed on this patient. 3. Treatment Recommendations: NOF guidelines recommend consideration for treatment in postmenopausal women and men age 50 and older presenting with the following: -A hip or vertebral (clinical or morphometric) fracture. -T-score less than or equal to -2.5 at the femoral neck or spine after appropriate evaluation to exclude secondary causes. -Low bone mass at the hip or spine and a 10-year fracture probability by FRAX of greater than or equal to 3% for hip fracture or greater than or equal to 20% for major osteoporotic fracture based on the [place] adapted WHO algorithm. 4. Other Recommendations: All treatment decisions require clinical judgment and consideration of individual patient factors, including patient preferences, comorbidities, previous drug use, risk factors not captured in the FRAX model (e.g. frailty, falls, vitamin D deficiency, increased bone turnover, interval significant decline in bone density) and possible under or overestimation of fracture risk by FRAX. Additional medical evaluation for secondary cause of low bone mineral density may be appropriate. FUTURE SCAN RECOMMENDATION: People with diagnosed cases of osteoporosis or at high risk for fracture should have regular bone mineral density tests. For patients eligible for Medicare, routine testing is allowed once every 2 years. The testing frequency can be increased to one year for patients who have rapidly progressing disease, those who are receiving or discontinuing medical therapy to restore bone mass, or have additional risk factors. Electronically signed by: Vicente Munoz MD 01/15/2024 08:36 AM EDT
== END 2024-01-08 08:17 | disposition home or self-care (01) ==
LOC: HO.MAMMO 08:16
PROVIDERS: PCP Internal Medicine; Visit Provider Internal Medicine
DX: Z13.820 Encounter for screening for osteoporosis (principal); Z78.0 Asymptomatic menopausal state
CPT/HCPCS: 77080

== ENCOUNTER 2024-05-19 09:09 | Outpatient (AMB) | payer MEDICARE, SELFPAY ==
[2024-05-19 09:11] VITALS: BP 164/96; PULSE 76; O2SAT 98; BMI 27.5
--- NOTE | 2024-05-19 09:11 | A.OFFPC_ITS ---
Vital Signs 05/19/24 09:11 05/19/24 09:37 Height 5 ft 4 in Weight 160 lb 4 oz BMI 27.5 BP 164/96 H 148/98 H Blood Pressure Location Lt brachial Lt brachial Position Sitting Sitting Pulse 76 Pulse Source Pulse Oximeter Pulse Oximetry (%) 98 Oxygen Delivery Method Room Air Intake Visit Reasons: 6M F/U Allergies No Known Allergies Allergy (Verified 05/19/24 09:11) Medication List - Last Reconciled 05/19/24 by Mars Balbuena MD apixaban (Eliquis) 5 mg PO BID atorvastatin 20 mg PO BEDTIME 90 days calcium carbonate (Calcium 600) 600 mg PO BID cholecalciferol (vitamin D3) 2,000 units PO DAILY hydroxyurea 500 mg PO DAILY lisinopril 2.5 mg PO DAILY Tobacco use date assessed: 05/19/24 Fall risk assessment: No Falls in past year Last assessed Fall Risk: 05/19/24 Dental Screening Dental Screen Date: 05/19/24 Did you have a dental visit in the last 12 months?: Yes Did you have a dental problem in the last 6 months where you did not have access to dental care?: No Was dental information given to patient?: Patient has dentist HPI 6M F/U HPI Details - The patient is a 73-year-old female pr esenting for a six-month follow-up appointment. - Blood pressure was elevated at the [facility] (164/96 mmHg) but typically runs at 120/78 mmHg at home, suggesting White Coat Syndrome. Patient monitors hypertension at home. - Patient is diagnosed with Essential Hy pertension and on hypertension medication, with lisinopril at 2.5 mg dosage. - History of Essential Thrombocythemia m anaged by Dr. Richmond, a auto damage appraiser. Regular laboratory evaluations coincide with follow-up appointments. - Routine lab results are stable, with n ormal renal and hepatic functions, cholesterol within therapeutic range, and no abnormalities in thyroid function. Plan 1. 5 mg, and the patient is to have her blood pressure re-checked before departure. For Essential Thrombocythemia, arrangements for follow-up with the auto damage appraiser, Dr. Richmond, will include necessary lab evaluations in July. Routine labs exhibit stable renal, hepatic, and thyroid functions, and cholesterol is well-managed; therefore, current interventions will continue without modification. The patient will coordinate blood work with [facility]'s lab, ensuring comprehensive checking during hematology appointments.: Patient Instructions - Continue monitoring your blood pressur e at home regularly. - Be aware of possible White Coat Syndro me affecting blood pressure readings at the clinic. - Attend your next hematology appointmen t with Dr. Richmond in July and ensure the completion of scheduled laboratory tests. - Continue taking your medications as pr escribed, including lisinopril and cholesterol medication. - Be alert to any significant changes in your health and report concerns promptly. Review of Systems - Cardiovascular: Reports stable blood p ressure management at home. - Musculoskeletal: Denies swelling of an kles. - Respiratory: Denies respiratory issues . - Gastrointestinal: Denies abdominal omar n or vomiting. - General: Reports feeling well overall. - General: No fever no chills - Neurological: No headaches no dizziness - Ear nose throat: No sore throat no hearing difficulty no ear pain - Cardiovascular: No syncope, no chest pain, no palpitations - Gastrointestinal: No nausea vomiting or diarrhea - Endocrine: No polyuria polydipsia no heat intolerance - Genitourinary: No dysuria , no blood in urine Physical Exam General: No acute distress HEENT: No acute findings Neck: Supple Respiratory system: Able to talk in full sentences, no audible wheeze cardiovascular: S1-S2 regular in rate and rhythm Gastrointestinal: No pain, no vomiting Extremities: No new findings, no swelling of ankles 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 1. Little interest or pleasure in doing things: not at all 2. Feeling down, depressed, or hopeless: not at all 3. Trouble falling or staying asleep, or sleeping too much: not at all 4. Feeling tired or having little energy: not at all 5. Poor appetite or overeating: not at all 6. Feeling bad about yourself - or that you are a failure or have let yourself or your family down: not at all 7. Trouble concentrating on things, such as reading the newspaper or watching television: not at all 8. Moving or speaking so slowly that other people could have noticed. Or the opposite - being so fidgety or restless that you have been moving around a lot more than usual: not at all 9. Thoughts that you would be better off or of hurting yourself in some way: not at all Total score: 0 Depression Screening Interpretation: Negative Depression Screening Done: Yes 38259 - PHQ-9 Billing: Yes Source: Developed by Drs. Aden Dimas, Nancy Hamilton, Bassam Osullivan and colleagues, with an educational elizabeth from [employer]. Thrive Questionnaire Date Thrive assessed: 05/19/24 I am a: Patient What is your living situation today?: I have a steady place to live Within the past 12 months, did the food you bought not last and you didn't have the money to get more?: Never true Within the past 12 months, did you worry whether your food would run out before you got money to buy more?: Never true Do you have trouble paying for medicines?: No Do you have trouble getting transportation to medical appointments?: No Do you have trouble paying your heating and electricity bill?: No Do you have trouble taking care of your child, family member or friend?: No Do you have trouble with day-to-day activities such as bathing, preparing meals, shopping, managing finances, etc.?: No Are you currently unemployed and looking for a job?: No Are you interested in more education?: No Please select the resources that you would like help with: None Currently or been in a relationship where the following occur: No concerns reported THRIVE Score: 0 AUDIT C Alcohol Use Questionnaire (AUDIT-C) 1. How often do you have a drink containing alcohol?: Monthly or less 2. How many drinks containing alcohol do you have on a typical day when you are drinking?: 1 or 2 3. How often do you have six or more drinks on one occasion?: Never Total Score: 1 Score Reviewed/Action Taken: Yes IVET-7 AMB Questionnaire IVET-7 Date IVET - 7 assessed: 05/19/24 Feeling nervous, anxious, or on edge: 0 = Not at all Not being able to stop or control worryin = Not at all Worrying too much about different things: 0 = Not at all Trouble relaxin = Not at all Being so restless that it is hard to sit still: 0 = Not at all Becoming easily annoyed or irritable: 0 = Not at all Feeling afraid as if something awful might happen: 0 = Not at all Total IVET-7 score (0-4 normal; 5-9 mild; 10-14 moderate; 15-21 severe): 0 Source: Developed by Drs. Aden Dimas, Nancy Hamilton, Bassam Osullivan and colleagues, with an educational elizabeth from [employer]. IVET-7 Assessment Billing IVET-7 Assessment Tool: IVET-7 Assessment 77319 Physical exam (Primary Care) Vital Signs: Last Vital Signs Pulse 76 05/19/24 09:11 BP 148/98 H 05/19/24 09:37 Pulse Ox 98 05/19/24 09:11 Oxygen Delivery Method Room Air 05/19/24 09:11 BMI result Body Mass Index 27.5 Tobacco/Smoking Status: Tobacco use Status Tobacco use date assessed 05/19/24 05/19/24 09:12 Patient Tobacco Use Status Never used Tobacco 05/19/24 09:12 e-Cigarette/Vaping Use Never Used 05/19/24 09:12 PHQ-9: PHQ-9 Score PHQ-9: Total score 0 05/19/24 09:38 Depression Screening Interpretation: Negative Thrive Assessment: Date of Thrive Assessment Date Thrive assessed 05/19/24 05/19/24 09:12 Currently or been in a relationship where the following occur: No concerns reported Coding Level of Care Code Est Pt Level 3 (10631) Complex EM visit Add On G2211 Diagnoses Hypertension, essential I10 Lipid disorder E78.9 Neutropenia, unspecified type D70.9 Neutropenia type: unspecified Anemia in other chronic diseases classified elsewhere D63.8 Anemia type: other cause Other causes of anemia: chronic disease, other Additional Codes IVET-7 Assessment Billing - IVET-7 Assessment Tool: IVET-7 Assessment 49637 ([id number]) PHQ-9 - 77101 - PHQ-9 Billing: Yes ([id number]) Assessment & Plan Assessment & Plan (1) Hypertension, essential: Code(s): I10 - Essential (primary) hypertension Category: Medical (2) Lipid disorder: Code(s): E78.9 - Disorder of lipoprotein metabolism, unspecified Category: Medical (3) Neutropenia: Code(s): D70.9 - Neutropenia, unspecified Category: Medical Qualifiers: Neutropenia type: unspecified Qualified Code(s): D70.9 - Neutropenia, unspecified (4) Anemia: Code(s): D64.9 - Anemia, unspecified Category: Medical Qualifiers: Anemia type: other cause Other causes of anemia: chronic disease, other Qualified Code(s): D63.8 - Anemia in other chronic diseases classified elsewhere Plan - The patient is a 73-year-old female presenting for a six-month follow-up appointment. - Blood pressure was elevated at the clinic (164/96 mmHg) but typically runs at 120/78 mmHg at home, suggesting White Coat Syndrome. Patient monitors hypertension at home. - Patient is diagnosed with Essential Hypertension and on hypertension medication, with lisinopril at 2.5 mg dosage. - History of Essential Thrombocythemia managed by Dr. Richmond, a auto damage appraiser. Regular laboratory evaluations coincide with follow-up appointments. - Routine lab results are stable, with normal renal and hepatic functions, cholesterol within therapeutic range, and no abnormalities in thyroid function. Plan 1. 5 mg, and the patient is to have her blood pressure re-checked before departure. For Essential Thrombocythemia, arrangements for follow-up with the auto damage appraiser, Dr. Richmond, will include necessary lab evaluations in July. Routine labs exhibit stable renal, hepatic, and thyroid functions, and cholesterol is well-managed; therefore, current interventions will continue without modification. The patient will coordinate blood work with [facility]'s lab, ensuring comprehensive checking during hematology appointments.: Patient Instructions - Continue monitoring your blood pressure at home regularly. - Be aware of possible White Coat Syndrome affecting blood pressure readings at the clinic. - Attend your next hematology appointment with Dr. Richmond in July and ensure the completion of scheduled laboratory tests. - Continue taking your medications as prescribed, including lisinopril and cholesterol medication. - Be alert to any significant changes in your health and report concerns promptly. Orders: Orders Complete Blood Count Auto Diff Today D63.8 - Anemia in other chronic diseases classified elsewhere, D70.9 - Neutropenia, unspecified, E78.9 - Disorder of lipoprotein metabolism, unspecified, I10 - Essential (primary) hypertension Comprehensive Met. Panel Today D63.8 - Anemia in other chronic diseases classified elsewhere, D70.9 - Neutropenia, unspecified, E78.9 - Disorder of lipoprotein metabolism, unspecified, I10 - Essential (primary) hypertension Ferritin Today D63.8 - Anemia in other chronic diseases classified elsewhere, D70.9 - Neutropenia, unspecified, E78.9 - Disorder of lipoprotein metabolism, unspecified, I10 - Essential (primary) hypertension
[2024-05-19 09:37] VITALS: BP 148/98
--- OUTSIDE RECORDS SUMMARY | 2024-05-19 09:50 | XMS_ITS ---
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
--- OUTSIDE RECORDS SUMMARY | 2024-05-19 09:51 | XMS_ITS | Clinical Summary ---
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 Name Role Phone OMER RODRIGUEZ Primary Care Provider [phone] [facility] [phone] Reason for Visit and Chief Complaint Established Patient Plan of Treatment Pending Tests Order Diagnosis Results Due Ordering P rovider Follow Up - Appointment 1 Month Unsp phy seal fx upper end of humerus, right arm, init 07/30/23 Kalina Pelayo MD Last Documented On 11:38AM ; [facility] Assessments Includes: Assessments from this encounter No Assessments Recorded Medical Equipment - Implanted Devices Includes: Current Devices No Medical Equipment Recorded Medications Includes: Medications discussed during this encounter and other current Medications Current Medications (continue as prescribed) oxyCODONE HCl 5 MG Oral Capsule 07/23/2023 Provider: Diagnosis: Last Documented On 4 9:55AM By Kalyan Garcia ; [facility] Tylenol Extra Strength 500 MG Oral Tablet 07/23/2023 Provider: Diagnosis: Last Documented On 4 9:55AM By Kalyan Garcia ; [facility] Medications Administered Includes: Administered Medications from this encounter No Administered Medications Recorded Vital Signs Includes: Vital Signs from this encounter Vital Name 07/30/2023 10:15A Blood Pressure Sitting (mmHg) 172/93 Pulse Rate-Sitting (bpm) 68 Temp-Temporal 97 Height (in) 64 Weight (lb) 160 Body Mass Index 27.5 Body Surface Area 1.8 Oxygen Saturation (%) 99 Last Documented: On 07/30/2023 10:15A M ; [facility] Results Includes: Results discussed during this encounter No Results Recorded For Specified Dates History of Present Illness Includes: History of Present Illness from this encounter No History of Present Illness Recorded Social History No Social History Recorded - Smoking Status Unknown Procedures and Surgical History Includes: Procedures from this encounter Procedures Code Diagnosis Performing Provider Service Location Service Date X-Ray Of Shoulder, complete, min of 2 views (Professional Comp., Right) [id number] Unsp physeal fx upper end of humerus, right arm, janna Pelayo MD [facility], 07/30/2023 Last Documented On 4 9:28AM ; [facility] X-Ray Of Shoulder, complete, min of 2 views (Technical Ccomponent, Right) [id number] Unsp physeal fx upper end of humerus, right arm, janna Pelayo [facility] 07/30/2023 Last Documented On 4 9:04AM ; [facility] Medical History Includes: Medical History addressed during this encounter No Medical History Recorded Family History Includes: Family History addressed during this encounter No Family History Recorded Review of Systems Includes: Review of Systems from this encounter Chief complaint: Left shoulder injury History of Present Illness: This is a 73-year-old woman who fell while hiking and injured her right shoulder. She had pain and swelling in the right arm. She was seen in the emergency room and was found to have a fracture. She was placed in a shoulder immobilizer and orthopedic consultation was requested. She has localized pain in her right shoulder. She denies elbow, forearm, wrist, or hand pain. She denies numbness or tingling. Physical exam: The right upper extremity shows mild swelling of the right arm with ecchymosis over the proximal and mid portions of the humerus. There is tenderness of the proximal humerus. There is no tenderness of the elbow, forearm, wrist, or hand. Skin and neurovascular exams are otherwise intact to the right upper extremity. Imaging: Radiographs of the right shoulder taken 07/20/2023 demonstrate a comminuted mildly impacted mildly displaced fracture of the right humerus surgical neck. Impression: Fracture right proximal humerus Plan: Continued use a sling. Nonweightbearing. Okay to start pendulums. Follow-up in to to 3 weeks for repeat clinical check and x-rays and then likely initiation of some therapy. Mental Status Includes: Mental Status from this encounter No Mental Status Recorded Functional Status Includes: Functional Status from this encounter No Functional Status Recorded Physical Exam Includes: Physical Exam from this encounter Encounters Encounter Provider Location Date Check-In Time Check-Out Time Diagnosis Established Patient Kalina Pelayo MD [facility] 024 10:00AM 10:12AM Insurance Includes: Active Insurance Policies Plan Name Member ID Group # Subscriber Relationship Effect ale Dates 1 - [facility] [id number] Melissa Lindsey Clinical Notes Includes: Clinical Notes from this encounter * Progress note Date Encounter Last Documented by 07/30/2023 Established Patient Chuy walker on 07/30/2023; 11:38 AM, Kalina Pelayo MD; [facility], Physical Findings - Vitals taken 07/30/2023 10:15 am BP-Sitting 172/93 mmHg Pulse Rate-Sitting 68 bpm Temp-Temporal 97 F Height 64 in Weight 160 lbs Body Mass Index 27.5 kg/m2 Body Surface Area 1.8 m2 Oxygen Saturation 99 % Plan StartCited - Unsp physeal fx upper end of humerus, right arm, init Follow Up/Appointment: 1 Month EndCited User Defined 4 Chief complaint: Left shoulder injury History of Present Illness: This is a 73-year-old woman who fell while hiking and injured her right shoulder. She had pain and swelling in the right arm. She was seen in the emergency room and was found to have a fracture. She was placed in a shoulder immobilizer and orthopedic consultation was requested. She has localized pain in her right shoulder. She denies elbow, forearm, wrist, or hand pain. She denies numbness or tingling. Physical exam: The right upper extremity shows mild swelling of the right arm with ecchymosis over the proximal and mid portions of the humerus. There is tenderness of the proximal humerus. There is no tenderness of the elbow, forearm, wrist, or hand. Skin and neurovascular exams are otherwise intact to the right upper extremity. Imaging: Radiographs of the right shoulder taken 07/20/2023 demonstrate a comminuted mildly impacted mildly displaced fracture of the right humerus surgical neck. Impression: Fracture right proximal humerus Plan: Continued use a sling. Nonweightbearing. Okay to start pendulums. Follow-up in to to 3 weeks for repeat clinical check and x-rays and then likely initiation of some therapy.
--- OUTSIDE RECORDS SUMMARY | 2024-05-19 09:51 | XMS_ITS | Clinical Summary ---
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 Role Phone OMER RODRIGUEZ Primary Care Provider [phone] [facility] [phone] Reason for Visit and Chief Complaint Established Patient Plan of Treatment Pending Tests Order Diagnosis Results Due Ordering P victorino Follow Up - Appointment 1 Month Unsp fra cture of upper end of right humerus, init 08/13/23 Ari Wise MD Last Documented On 9:18AM ; [facility] Assessments Includes: Assessments from this encounter No Assessments Recorded Medical Equipment - Implanted Devices Includes: Current Devices No Medical Equipment Recorded Medications Includes: Medications discussed during this encounter and other current Medications Current Medications (continue as prescribed) oxyCODONE HCl 5 MG Oral Capsule 07/23/2023 Provider: Diagnosis: Last Documented On 4 9:55AM By Kalyan Garcia ; [facility] Tylenol Extra Strength 500 MG Oral Tablet 07/23/2023 Provider: Diagnosis: Last Documented On 4 9:55AM By Kalyan Garcia ; [facility] Medications Administered Includes: Administered Medications from this encounter No Administered Medications Recorded Vital Signs Includes: Vital Signs from this encounter Vital Name 08/13/2023 09:01A Blood Pressure Sitting (mmHg) 165/94 Pulse Rate-Sitting (bpm) 68 Temp-Temporal 96.8 Height (in) 64 Weight (lb) 158 Body Mass Index 27.1 Body Surface Area 1.8 Oxygen Saturation (%) 97 Last Documented: On 08/13/2023 9:01AM ; [facility] Results Includes: Results discussed during this encounter [...] min of 2 views (Professional Comp., Right) [id number] Unsp fracture of upper end of right humerus, init Ari Wise MD [facility] 08/13/2023 Last Documented On 4 10:10AM ; [facility] X-Ray Of Shoulder, complete, min of 2 views (Technical Ccomponent, Right) [id number] Unsp fracture of upper end of right humerus, instefan Wise MD [facility] 08/13/2023 Last Documented On 4 5:17PM ; [facility] Medical History Includes: Medical History addressed during this encounter No Medical History Recorded Family History Includes: Family History addressed during this encounter No Family History Recorded Review of Systems Includes: Review of Systems from this encounter No Review of Systems Recorded Mental Status Includes: Mental Status from this encounter No Mental Status Recorded Functional Status Includes: Functional Status from this encounter No Functional Status Recorded Physical Exam Includes: Physical Exam from this encounter Encounters Encounter Provider Location Date Check-In Time Check-Out Time Diagnosis Established Patient Ari Wise MD [facility] 08/13/19 24 9:00AM 9:21AM Insurance Includes: Active Insurance Policies Plan Name Member ID Group # Subscriber Relationship Effect ale Dates 1 - [facility] [id number] Melissa Marcron Lindsey Clinical Notes Includes: Clinical Notes from this encounter * Progress note Date Encounter Last Documented by 08/13/2023 Established Patient Chuy walker on 08/13/2023; 9:18 AM, Ari Wise MD; [facility] Current Medication - oxyCODONE HCl 5 MG Oral Capsule 0 days, 0 refills - Tylenol Extra Strength 500 MG Oral Tablet 0 days, 0 refills Physical Findings - Vitals taken 08/13/2023 09:01 am BP-Sitting 165/94 mmHg Pulse Rate-Sitting 68 bpm Temp-Temporal 96.8 F Height 64 in Weight 158 lbs Body Mass Index 27.1 kg/m2 Body Surface Area 1.8 m2 Oxygen Saturation 97 % Chief complaint: Follow-up fracture right proximal humerus History of Present Illness: This is a 73-year-old woman who sustained a fracture of her right proximal humerus on 07/20/2023. She was seen here last on 07/29/2022. She was continued with her sling and asked to follow-up in 3 weeks. She has no complaints today. She is feeling much better. Physical exam: The right upper extremity swelling is markedly improved. There is resolving ecchymosis in the right arm. It is noted that she does take Eliquis. She has reasonably good motion of the right shoulder for this stage of healing. Neurovascular exam is intact. Imaging: Radiographs of the right shoulder taken today show a mildly displaced mildly impacted fracture of the right surgical neck of the proximal humerus. There is good fracture callus present. Impression: Fracture right proximal humerus Plan: The patient is instructed to discontinue the sling. I prescribed physical therapy to assist with range of motion and strengthening. I asked her to return in 1 month for reexamination and x-ray AP and internal rotation views of the right shoulder. Plan StartCited - Unsp fracture of upper end of right humerus, init Follow Up/Appointment: 1 Month EndCited
--- OUTSIDE RECORDS SUMMARY | 2024-05-19 09:51 | XMS_ITS | Clinical Summary ---
Author Organization [facility] Address [address] [place] [address] Phone Care Team Providers Care Urogynecology Physician Name Role Phone OMER RODRIGUEZ Primary Care Provider [phone] [facility] Unavailable [phone] Reason for Visit and Chief Complaint Established Patient Plan of Treatment Pending Tests Order Diagnosis Results Due Ordering P rovider Follow Up - Appointment PRN Unsp fra cture of upper end of right humerus, init 09/12/23 Desmond Faulkner PA-C Last Documented On 4 11:03AM ; [facility] [place] [facility] X-Rays - X-Rays Shoulder, right, min of 2 views ([id number]) Unsp fracture of upper end of right humerus, init 09/14/23 Desmond Faulkner PA-C Last Documented On 4 11:03AM ; [facility] Assessments Includes: Assessments from this encounter No Assessments Recorded Medical Equipment - Implanted Devices Includes: Current Devices No Medical Equipment Recorded Medications Includes: Medications discussed during this encounter and other current Medications Current Medications (continue as prescribed) oxyCODONE HCl 5 MG Oral Capsule 07/23/2023 Provider: Diagnosis: Last Documented On 4 9:55AM By Kalyan Garcia ; [facility] Tylenol Extra Strength 500 MG Oral Tablet 07/23/2023 Provider: Diagnosis: Last Documented On 4 9:55AM By Kalyan Garcia ; [facility] Medications Administered Includes: Administered Medications from this encounter No Administered Medications Recorded Vital Signs Includes: Vital Signs from this encounter Vital Name 09/12/2023 10:28A Blood Pressure Sitting (mmHg) 129/72 Pulse Rate-Sitting (bpm) 85 Temp-Temporal 97 Height (in) 64 Weight (lb) 158 Body Mass Index 27.1 Body Surface Area 1.8 Oxygen Saturation (%) 96 Last Documented: On 09/12/2023 10:29A M ; [facility] Results Includes: Results discussed during this [...] min of 2 views (Professional Comp., Right) [id number] Unsp fracture of upper end of right humerus, init Desmond Faulkner PA-C [facility] 09/12/2023 Last Documented On 4 6:48PM ; [facility] X-Ray Of Shoulder, complete, min of 2 views (Technical Ccomponent, Right) [id number] Unsp fracture of upper end of right humerus, init [facility]ulk[facility] 09/12/2023 Last Documented On 4 6:48AM ; [facility] Medical History Includes: Medical History addressed [...] Check-In Time Check-Out Time Diagnosis Established Patient Desmond Faulkner PA-C [facility] 09/12/19 24 9:40AM 10:55AM Insurance Includes: Active Insurance Policies Plan Name Member ID Group # Subscriber Relationship Effect ale Dates 1 - [facility] [id number] Melissa Lindsey Clinical Notes Includes: Clinical Notes from this encounter * Progress note Date Encounter Last Documented by 09/12/2023 Established Patient Chuy walker on 09/12/2023; 11:03 AM, Desmond Faulkner PA-C; [facility] Current Medication - oxyCODONE HCl 5 MG Oral Capsule 0 days, 0 refills - Tylenol Extra Strength 500 MG Oral Tablet 0 days, 0 refills Physical Findings - Vitals taken 09/12/2023 10:28 am BP-Sitting 129/72 mmHg Pulse Rate-Sitting 85 bpm Temp-Temporal 97 F Height 64 in Weight 158 lbs Body Mass Index 27.1 kg/m2 Body Surface Area 1.8 m2 Oxygen Saturation 96 % Plan StartCited - Unsp fracture of upper end of right humerus, init Follow Up/Appointment: PRN In House X-Rays/X-Rays: Shoulder, right, min of 2 views ([id number]) EndCited Notes REASON FOR VISIT Clinic follow-up for right proximal humerus fracture DATE OF INJURY 07-20-23 HISTORY OF PRESENT ILLNESS Patient is a pleasant right hand dominant 73-year-old female. On 07-20-23, patient sustained mechanical fall during a hike resulting in right shoulder pain. Patient presented to [facility] ED. X-ray of right shoulder demonstrated Comminuted fracture of the humeral head and neck with impaction. Patient was placed in a sling and swath and instructed to be nonweightbearing right upper extremity. On 08-13-23, patient seen most recently in the orthopedic clinic. At that time, patient was instructed to discontinue the sling and given a prescription for PT to work on range of motion and strengthening. Today, patient states that she is generally doing well. Reports that the pain in her right shoulder has resolved. States that she had a slight burning sensation from her right thumb to her forearm but now it is just at the base of her right thumb. Reports that this sensation is improving over time. States that she has been faithfully attending physical therapy and has been seeing improvement in the range of motion of her right shoulder. Reports that she is happy with the progress that she has made and hopes to continue to have more. Denies numbness, paresthesias. PHYSICAL EXAM General: Alert and cooperative, sitting comfortably on exam table, in no acute distress Musculoskeletal: Right upper extremity- mild light ecchymosis appreciated on the ulnar aspect of the forearm, no deformity/erythema/wound appreciated, area is nontender palpation, fires EPL/FPL/intrinsics, range of motion of wrist/elbow is intact, patient lacking approximately 25 degrees range of motion of shoulder abduction and flexion compared to contralateral side, sensation intact across radian/median/ulnar distributions, appears well-perfused IMAGING 09-12-23: X-ray of right shoulder demonstrates proximal humerus fracture in stable alignment compared to prior imaging with callus formation ASSESSMENT Patient is 8 weeks s/p fall resulting in right proximal humerus fracture treated conservatively. Patient is progressing well. Patient informed that her range of motion may continue to improve but she may not obtain full range of motion compared to prior to her injury to which patient communicated understanding. The burning sensation in the patient's hand may be a result of a minor traction injury of the nerve during the fall which seems to be improving over time. PLAN - Weightbearing: As tolerated right upper extremity - Activity: As tolerated, being cautious of reinjury - Therapy: Continue PT for strengthening and range of motion right upper extremity - Dressing/DME: N/A - Pain control: Apply ice to affected area, 20 minutes on and 20 minutes off with a barrier between the ice and the skin; over the counter pain medication such as Tylenol or NSAID's as medically tolerated - Follow up: As needed - X-ray at follow up: N/A Above, including any imaging, discussed with and agreed to by Dr. Ochoa.
--- OUTSIDE RECORDS SUMMARY | 2024-05-19 09:51 | XMS_ITS | Clinical Summary ---
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 Name Role Phone OMER RODRIGUEZ Primary Care Provider [phone] [facility] Un[facility] [phone] Reason for Visit and Chief Complaint Medicare New Patient Plan of Treatment Pending Tests Order Diagnosis Results Due Ordering P rovider Follow Up - Appointment 1 Week Unsp phy seal fx upper end of humerus, right arm, init 07/23/23 Ari Wise MD Last Documented On 4 10:01AM ; [facility], Assessments Includes: Assessments from this encounter No Assessments Recorded Medical Equipment - Implanted Devices Includes: Current Devices No Medical Equipment Recorded Medications Includes: Medications discussed during this encounter and other current Medications Current Medications (continue as prescribed) oxyCODONE HCl 5 MG Oral Capsule 07/23/2023 Provider: Diagnosis: Last Documented On 4 9:55AM By Kalyan Garcia ; [facility] Tylenol Extra Strength 500 MG Oral Tablet 07/23/2023 Provider: Diagnosis: Last Documented On 4 9:55AM By Kalyan Garcia ; [facility] Medications Administered Includes: Administered Medications from this encounter No Administered Medications Recorded Vital Signs Includes: Vital Signs from this encounter Vital Name 07/23/2023 09:54A Blood Pressure Sitting (mmHg) 129/84 Pulse Rate-Sitting (bpm) 91 Temp-Temporal 97.2 Height (in) 64 Weight (lb) 160 Body Mass Index 27.5 Body Surface Area 1.8 Oxygen Saturation (%) 99 Last Documented: On 07/23/2023 9:55AM ; [facility] Results Includes: Results discussed during this encounter No Results Recorded For Specified Dates History of Present Illness Includes: History of Present Illness from this encounter No History of Present Illness Recorded Social History No Social History Recorded - Smoking Status Unknown Medical History Includes: Medical History addressed during [...] Location Date Check-In Time Check-Out Time Diagnosis Medicare New Patient Ari Wise MD [facility] 07/23/19 24 9:40AM 10:02AM Insurance Includes: Active Insurance Policies Plan Name Member ID Group # Subscriber Relationship Effect ale Dates 1 - [employer] [id number] Melissa Cardoza César Clinical Notes Includes: Clinical Notes from this encounter * Progress note Date Encounter Last Documented by 07/23/2023 Medicare New Patient Last docume nted on 07/23/2023; 10:01 AM, Ari Wise MD; [facility] Current Medication - oxyCODONE HCl 5 MG Oral Capsule 0 days, 0 refills - Tylenol Extra Strength 500 MG Oral Tablet 0 days, 0 refills Physical Findings - Vitals taken 07/23/2023 09:54 am BP-Sitting 129/84 mmHg Pulse Rate-Sitting 91 bpm Temp-Temporal 97.2 F Height 64 in Weight 160 lbs Body Mass Index 27.5 kg/m2 Body Surface Area 1.8 m2 Oxygen Saturation 99 % Chief complaint: Left shoulder injury History of [...] Physical exam: The right upper extremity shows moderate swelling of the right arm with ecchymosis [...] neck. Impression: Fracture right proximal humerus Plan: I adjusted her shoulder immobilizer and instructed her in its use. She should wear it full-time except for gentle bathing once daily. She should avoid external rotation or elevation of the right arm. I asked her to return in 1 week for reexamination and x-ray AP and internal rotation views of the right shoulder. Plan is for about 3- 4 weeks of immobilization in the sling followed by occupational therapy. Plan StartCited - Unsp physeal fx upper end of humerus, right arm, init Follow Up/Appointment: 1 Week EndCited
== END 2024-05-19 10:02 | disposition home or self-care (01) ==
PROVIDERS: PCP Internal Medicine; Visit Provider Internal Medicine
DX: I10 Essential (primary) hypertension (principal); E78.9 Disorder of lipoprotein metabolism, unspecified; D70.9 Neutropenia, unspecified; D63.8 Anemia in other chronic diseases classified elsewhere

== ENCOUNTER → 2024-05-19 09:09 | Outpatient (BNVA) | payer MEDICARE, SELFPAY | PROVIDERS: PCP Internal Medicine; Visit Provider Internal Medicine | DX: I10 Essential (primary) hypertension (principal); E78.9 Disorder of lipoprotein metabolism, unspecified; D70.9 Neutropenia, unspecified; D63.8 Anemia in other chronic diseases classified elsewhere; Z79.899 Other long term (current) drug therapy | CPT/HCPCS: 96127; 99212 ==

== ENCOUNTER 2024-12-09 08:10 | Outpatient (AMB) | payer MEDICARE, SELFPAY ==
--- NOTE | 2024-12-09 08:13 | MHC.PC.OV ---
Vital Signs 12/09/24 08:14 Height 5 ft 4 in Weight 157 lb BMI 26.9 BP 122/80 Blood Pressure Location Lt brachial Position Sitting Pulse 78 Pulse Source Pulse Oximeter Pulse Oximetry (%) 98 Intake Visit Reasons: annual exam - see comments Staff Development Coordinator Rn Required: No Accompanied by: Self / Same As Patient Allergies No Known Allergies Allergy (Verified 12/09/24 08:16) Medication List - Last Reconciled 12/09/24 by Mars Balbuena MD apixaban (Eliquis) 5 mg PO BID atorvastatin 20 mg PO BEDTIME 90 days calcium carbonate (Calcium 600) 600 mg PO BID cholecalciferol (vitamin D3) 2,000 units PO DAILY hydroxyurea 500 mg PO DAILY lisinopril 2.5 mg PO DAILY Tobacco use date assessed: 05/19/24 Fall risk assessment: No Falls in past year Last assessed Fall Risk: 12/09/24 Dental Screening Dental Screen Date: 05/19/24 HPI annual exam - see comments HPI Details Annual physical exam - The patient is a 74-year-old female presenting for follow-up regarding her Essential Thrombocytosis and to review laboratory results with a history of prior pulmonary embolism and myocardial infarction. - Essential Thrombocytosis diagnosed, under regular monitoring with hematology. - History of pulmonary embolism diagnosed after the sudden onset of shortness of breath, for which patient requires lifelong anticoagulation. - Notable tick exposure, tested with negative results for tick-borne illnesses. - Laboratory results reviewed including normal metabolic profile and complete blood count. - Continues atorvastatin for previously elevated cholesterol, reduced and stable as per laboratory values. Medical History: - Essential Thrombocytosis - history of Pulmonary Embolism - history of Pneumonia - History of Myocardial Infarction - History of Tick Bite - History of Anxiety associated with acute medical events Social History: - Engages in regular gardening activities which provide moderate exercise. - Recently experienced the loss of her dog, which has impacted her routine and emotional well-being. - Lives with a supportive family, including a daughter who assists with medication management. Health Maintenance - Recent mammogram in July of last year with the next appointment scheduled. - Negative Cologuard test in 2022; follow-up in one year. - Cholesterol management with atorvastatin, with low levels observed. - Monitoring of coagulation parameters due to anticoagulant therapy. Medications - Atorvastatin 20 mg, for hyperlipidemia - Anticoagulant, lifelong therapy for pulmonary embolism - Hydroxyurea, for Essential Thrombocytosis Diagnostic results Labs: - Comprehensive Metabolic Profile: Normal - Complete Blood Count: Normal - Hemoglobin: 11.7, normal as per [facility] report Patient Instructions - Continue current medications as prescribed. - Monitor for any side effects such as sore muscles or liver-related symptoms. - Engage in regular activities to promote cardiovascular health. - Return for follow-up labs as scheduled. - Report any new or worsening symptoms immediately. Review of Systems - General: No fever no chills - Neurological: No headaches no dizziness - Ear nose throat: No sore throat no hearing difficulty no ear pain - Cardiovascular: No syncope, no chest pain, no palpitations - Gastrointestinal: No nausea vomiting or diarrhea - Endocrine: No polyuria polydipsia no heat intolerance - Genitourinary: No dysuria - Skin: No new complaints Physical Exam General: Cooperative, healthy appearing, comfortable, no acute distress Orientation: Patient oriented x3 Head: Normal to inspection Ears: Within normal limit visually Nose: Normal external nose present Face and sinus: Normal facial exam Eyes: Appearance normal, extraocular movement intact pupils reactive Neck: Normal visual inspection and supple Respiratory: Normal respiratory effort and able to speak in complete sentences. Clear to auscultation, no stridor Cardiovascular: S1 and S2 RRR, no swelling, blood pressure 122/80 GI: Normal to inspection. Soft to palpation and nontender Skin: Turgor normal, no acute findings Neuro: Patient oriented x3, motor sensory intact, balance intact, tandem pass, good balance Extremities: Normal to inspection, range of motion intact [facility] Surgical History No pertinent past surgical history Family History Father Stomach cancer Mother Multiple myeloma Social History Housing: House Patient Tobacco Use Status: Never used Tobacco e-Cigarette/Vaping Use: Never Used Second Hand Smoke Exposure: Yes (years ago ) service: No Current occupational status: retired Cognitive needs: No Hearing needs: No Vision needs: Yes Questionnaire Thrive Questionnaire Date Thrive assessed: 12/09/24 I am a: Patient What is your living situation today?: I have a steady place to live Within the past 12 months, did the food you bought not last and you didn't have the money to get more?: Never true Within the past 12 months, did you worry whether your food would run out before you got money to buy more?: Never true Do you have trouble paying for medicines?: No Do you have trouble getting transportation to medical appointments?: No Do you have trouble paying your heating and electricity bill?: No Do you have trouble taking care of your child, family member or friend?: No Do you have trouble with day-to-day activities such as bathing, preparing meals, shopping, managing finances, etc.?: No Are you currently unemployed and looking for a job?: No Are you interested in more education?: No Please select the resources that you would like help with: None Currently or been in a relationship where the following occur: No concerns reported THRIVE Score: 0 IVET-7 AMB Questionnaire IVET-7 Date IVET - 7 assessed: 05/19/24 Source: Developed by Drs. Aden Dimas, Nancy Hamilton, Bassam Osullivan and colleagues, with an educational elizabeth from [employer]. Physical exam (Primary Care) Vital Signs: Last Vital Signs Pulse 78 12/09/24 08:14 BP 122/80 12/09/24 08:14 Pulse Ox 98 12/09/24 08:14 BMI result Body Mass Index 26.9 Tobacco/Smoking Status: Tobacco use Status Tobacco use date assessed 05/19/24 12/09/24 08:14 Patient Tobacco Use Status Never used Tobacco 12/09/24 08:14 e-Cigarette/Vaping Use Never Used 12/09/24 08:14 Thrive Assessment: Date of Thrive Assessment Date Thrive assessed 12/09/24 12/09/24 08:17 Currently or been in a relationship where the following occur: No concerns reported Coding Level of Care Code Est Pt Level 3 (67519) Est Pt Prev Care >65y(49249) Diagnoses Encounter for general adult medical examination with abnormal findings Z00. Lipid disorder E78.9 Essential thrombocytosis D47.3 Hypertension, essential I10 Assessment & Plan Assessment & Plan (1) Encounter for general adult medical examination with abnormal findings: Code(s): Z00.01 - Encounter for general adult medical examination with abnormal findings Category: Medical (2) Lipid disorder: Code(s): E78.9 - Disorder of lipoprotein metabolism, unspecified Category: Medical (3) Essential thrombocytosis: Code(s): D47.3 - Essential (hemorrhagic) thrombocythemia Category: Medical (4) Hypertension, essential: Code(s): I10 - Essential (primary) hypertension Category: Medical Plan Annual physical exam - The patient is a 74-year-old female presenting for follow-up regarding her Essential Thrombocytosis and to review laboratory results with a history of prior pulmonary embolism and myocardial infarction. - Essential Thrombocytosis diagnosed, under regular monitoring with hematology. - History of pulmonary embolism diagnosed after the sudden onset of shortness of breath, for which patient requires lifelong anticoagulation. - Notable tick exposure, tested with negative results for tick-borne illnesses. - Laboratory results reviewed including normal metabolic profile and complete blood count. - Continues atorvastatin for previously elevated cholesterol, reduced and stable as per laboratory values. Medical History: - Essential Thrombocytosis - history of Pulmonary Embolism - history of Pneumonia - History of Myocardial Infarction - History of Tick Bite - History of Anxiety associated with acute medical events Social History: - Engages in regular gardening activities which provide moderate exercise. - Recently experienced the loss of her dog, which has impacted her routine and emotional well-being. - Lives with a supportive family, including a daughter who assists with medication management. Health Maintenance - Recent mammogram in July of last year with the next appointment scheduled. - Negative Cologuard test in 2022; follow-up in one year. - Cholesterol management with atorvastatin, with low levels observed. - Monitoring of coagulation parameters due to anticoagulant therapy. Medications - Atorvastatin 20 mg, for hyperlipidemia - Anticoagulant, lifelong therapy for pulmonary embolism - Hydroxyurea, for Essential Thrombocytosis Diagnostic results Labs: - Comprehensive Metabolic Profile: Normal - Complete Blood Count: Normal - Hemoglobin: 11.7, normal as per [facility] report Patient Instructions - Continue current medications as prescribed. - Monitor for any side effects such as sore muscles or liver-related symptoms. - Engage in regular activities to promote cardiovascular health. - Return for follow-up labs as scheduled. - Report any new or worsening symptoms immediately. Orders: Orders Lipid Panel Today E78.9 - Disorder of lipoprotein metabolism, unspecified
[2024-12-09 08:14] VITALS: BP 122/80; PULSE 78; O2SAT 98; BMI 26.9
--- OUTSIDE RECORDS SUMMARY | 2024-12-09 08:16 | XMS_ITS | Clinical Summary ---
Author Organization [facility] Address [address] [place] [address] Care Team Providers Care Nut Picker Name Role Phone Mars Balbuena MD Primary Care Provider [phone] Allergies No known active allergies Medications Medication Sig Dispensed Refills Start Date End Date Status aspirin 81 MG tablet Take 1 tablet (81 mg total) by mouth daily. 0 Active lisinopril (PRINIVIL,ZESTRIL) tablet 2.5 mg Take 1 tablet (2.5 mg total) by mouth daily. 0 Active atorvastatin (LIPITOR) tablet 20 mg Take 1 tablet (20 mg total) by mouth daily. 0 Active calcium acetate (PHOSLO) 667 MG capsule Take 2 capsules (1,334 mg total) by mouth 3 (three) times a day with meals. 0 Active Cholecalciferol (VITAMIN D) 50 MCG (2000 UT) tablet Take 2,000 Units by mouth daily. 0 Active hydroxyurea (HYDREA) 500 MG capsule TAKE 2 CAPSULES BY MOUTH DAILY 180 capsule 3 12/27/2021 Active hydroxyurea (HYDREA) 500 MG capsule TAKE 2 CAPSULES BY MOUTH DAILY 200 capsule 3 06/19/2023 Active ferrous sulfate 325 (65 FE) MG tablet Take 1 tablet (325 mg total) by mouth every morning with breakfast. 0 Active Eliquis 5 MG TABS tablet TAKE 1 TABLET BY MOUTH EVERY 12 HOURS 200 tablet 2 08/19/2023 Active Active Problems Problem Noted Date Diagnosed Date Other pulmonary embolism without acute cor pulmo nale 05/29/2018 Essential thrombocytosis 12/03/2016 Social History Tobacco Use Types Packs/Day Years Used Date Smoking Tobacco: Never Smokeless Tobacco: Never Sex and Gender Information Value Date Recorded Sex Assigned at Not on file Gender Identity Not on file Sexual Orientation Not on file Job Start Date Occupation Industry Not on file Not on file Not on file Last Filed Vital Signs Vital Sign Reading Time Taken Comments Blood Pressure 139/75 01/01/2024 11:41 AM EDT Pulse 67 01/01/2024 11:41 AM EDT Temperature 37 C (98.6 F) 01/01/2024 11:41 AM EDT Respiratory Rate - - Oxygen Saturation 100% 01/01/2024 11:41 AM EDT Inhaled Oxygen Concentration - - Weight 72.1 kg (159 lb) 01/01/2024 11:41 AM EDT Height 162.6 cm (5' 4 ) 01/01/2024 11:41 AM EDT Body Mass Index 27.29 01/01/2024 11:41 AM EDT Plan of Treatment Health Maintenance Due Date Last Done Comments Hepatitis C Screening 1950 COVID-19 Vaccine (#1) 1955 Pneumococcal Vaccine (1 of 2 - PCV) 1956 Depression Screening 1962 Preventative Health Evaluation 1968 DTap / Tdap / Td (1 - Tdap) 1969 Shingrix-Zoster Vaccine (1 of 2) 1969 Colon Cancer Screening (Colonoscopy) 1995 Breast Cancer Screening (Mammogram) 2000 Fall Risk Assessment 2015 Osteoporosis Screening (DEXA Scan) 2015 Influenza Vaccine (#1) 2025 RSV Adult > 60+ Yrs or Pregn ant (1 - 1-dose 75+ series) 2025 Hepatitis B Vaccines Aged Out No long er eligible based on patient's age to complete this topic RSV Ped < 20 months Aged Out No longe r eligible based on patient's age to complete this topic Care Teams Nut Picker Relationship Specialty Start Date End Date Mars Balbuena MD [address] [place] [address] PCP - General Internal Medicine 04/25/20
--- OUTSIDE RECORDS SUMMARY | 2024-12-09 08:16 | XMS_ITS | Clinical Summary ---
Author Organization [facility] Address [address] [place] [address] Phone Care Team Providers Care Instructional Design Consultant Name Role Phone Mars Rodriguez MD Primary Care Provider [phone] Allergies No known active allergies Medications atorvastatin (LIPITOR) 20 mg tablet Take 1 tablet (20 mg total) by mouth 1 (one) time each day. Active cholecalciferol (VITAMIN D-3) 50 mcg (2,000 unit) tablet Take 2,000 Units by mouth daily. Active lisinopriL (PRINIVIL,ZESTR IL) 2.5 mg tablet Take 1 tablet (2.5 mg total) by mouth 1 (one) time each day. Active calcium carbonate (OS-BEN) 1250 mg (500 mg elemental calcium) chewable tablet Chew 1 tablet (1,250 mg total). Active Eliquis 5 mg tablet TAKE 1 TABLET BY MOUTH EVERY 12 HOURS 200 tablet 2 06/01/2024 Active hydroxyurea (HYDREA) 500 mg capsule TAKE 2 CAPSULES BY MOUTH DAILY 180 capsule 3 06/01/2024 Active Active Problems Problem Noted Date Diagnosed Date Other pulmonary embolism wit hout acute cor pulmonale (CMS/HCC V24, CMS/HCC V28) 05/29/2018 Essential thrombocytosis (CMS/HCC V24, [facility] V 28) 12/03/2016 Encounters Date Type Department Care Team Description 10/08/2024 9:45 AM EDT Office Visit [facility] Hemat[facility] Oncology [address] [place] [address] Jefry Richmond MD Essential thrombocytosis ([facility] V24, [facility] V28) (Primary Dx); Other acute pulmonary embolism without acute cor pulmonale ([facility] V24, [facility] V28) from Last 3 Months Medical History Medical History Date Comments Hypertension DX:Hypertension Psoriasis DX:Psoriasis Social History Tobacco Use Types Packs/Day Years Used Date Smoking Tobacco: Never Smokeless Tobacco: Never Tobacco Cessation:Counseling Given: Not Answered Comments Unknown Sex and Gender Information Value Date Recorded Sex Assigned at Not on file Legal Sex Female 9:44 PM EST Gender Identity Not on file Sexual Orientation Not on file Obstetrics History Last Filed Vital Signs Vital Sign Reading Time Taken Comments Blood Pressure 123/58 10/08/2024 9:44 AM EDT Pulse 63 10/08/2024 9:44 AM EDT Temperature 36.6 C (97.9 F) 10/08/2024 9:44 AM EDT Respiratory Rate - - Oxygen Saturation 99% 10/08/2024 9:44 AM EDT Inhaled Oxygen Concentration - - Weight 72.1 kg (159 lb) 10/08/2024 9:44 AM EDT Height 162.6 cm (5' 4 ) 01/01/2024 11:41 AM EDT Body Mass Index 27.29 01/01/2024 11:41 AM EDT Plan of Treatment Upcoming Encounters Date Type Department Care Team (Late st Contact Info) Description 12/28/2024 9:00 AM EDT [facility]ointment [facility] [address] [phone] 01/07/2025 9:45 AM EDT Office Visit [facility] Hematology Oncology [address] [place] [phone] Jefry Richmond MD [address] [place] [phone] Health Maintenance Due Date Last Done Comments Zoster Vaccines (1 of 2) 1969 Pneumococcal Vaccine: 50+ Years (1 of 1 - PCV) 2000 Cholesterol Screening (Lipid Panel) 04/13/2022 Colorectal Cancer Screening: Colonoscopy 04/13/2022 Falls Risk Assessment 04/13/2022 Hepatitis C Screening 04/13/2022 Medicare Annual Wellness Visit 04/13/2022 Osteoporosis Screening (Bone Density Screening) 04/13/2022 Social Influencers of Health Screening 04/13/2022 COVID-19 Vaccine ( season) 2024 02/08/2023, 02/25/2022, 02/27/2021, Additional history exists DTaP,Tdap,and Td Vaccines (2 - Td or Tdap) 05/06/2024 05/06/2014 Depression Screening 05/06/2024 Influenza Vaccine (#1) 2025 , 03/29/2023, 03/12/2022, Additional history exists Hypertension/CHF/CAD Annual BMP Blood Test 07/01/2025 07/01/2024 Breast Cancer Screening 07/16/2025 07/17/19, 05/21/2022, 03/02/2021, Additional history exists RSV Immunization Adult Patients Completed 05/20/2023 HIB Vaccines Aged Out No longer eligi ble based on patient's age to complete this topic HPV Vaccines Aged Out No longer eligi ble based on patient's age to complete this topic Hepatitis A Vaccines Aged Out No long er eligible based on patient's age to complete this topic Hepatitis B Vaccines Aged Out No long er eligible based on patient's age to complete this topic IPV Vaccines Aged Out No longer eligi ble based on patient's age to complete this topic MMR Vaccines Aged Out No longer eligi ble based on patient's age to complete this topic Meningococcal ACWY Vaccine Aged Out N o longer eligible based on patient's age to complete this topic Meningococcal B Vaccine Aged Out No l onger eligible based on patient's age to complete this topic RSV Immunization Patients Under 20 months Aged Out No longer eligible based on patient's age to complete this topic Varicella Vaccines Aged Out No longer eligible based on patient's age to complete this topic Procedures Procedure Name Priority Date/Time Associated Diagnosis Comments MANUAL DIFFERENTIAL - SYSMEX WAM Routine 10/02/2024 8:13 AM EDT Essential thrombocytosis (CMS/HCC V24, CMS/HCC V28) CBC WITH AUTO DIFFERENTIAL Routine 10/02/2024 8:13 AM EDT Essential thrombocytosis (CMS/HCC V24, CMS/HCC V28) CBC AND DIFFERENTIAL Routine 10/02/2024 8:13 AM EDT Essential thrombocytosis ([facility] V24, [facility] V28) COMPREHENSIVE METABOLIC PANEL Routine 07/01/2024 8:17 AM EST Essential thrombocytosis ([facility] V24, [facility] V28) Hypertension, essential Disorder of lipoprotein and lipid metabolism Neutropenia ([facility] V24) Anemia in other chronic diseases classified elsewhere JAYLEN SCREENING DIGITAL Routine 07/17/2023 11:15 AM EDT Encounter for screening mammogram for malignant neoplasm of breast from Last 3 Months or Most Recently Relevant to Health Maintenance Results * (ABNORMAL) Manual differential (10/02/2024 8:13 AM EDT) Neutrophils % 75.0 % LAB HEMETOLOGY METHOD 10/02/2024 12:00 PM [facility] Lymphocytes % 15.0 % LAB HEMETOLOGY METHOD 10/02/2024 12:00 PM [facility] Monocytes % 10.0 % LAB HEMETOLOGY METHOD 10/02/2024 12:00 PM [facility] Eosinophils % 0.0 % LAB HEMETOLOGY METHOD 10/02/2024 12:00 PM [facility] Basophils % 0.0 % LAB HEMETOLOGY METHOD 10/02/2024 12:00 PM [facility] Neutrophils Absolute Manual 3.45 1.50 - 7.00 K/mcL LAB HEMETOLOGY METHOD 10/02/2024 12:00 PM [facility] Lymphocytes Absolute 0.69(L) 1.00 - 5.00 K/mcL LAB HEMETOLOGY METHOD 10/02/2024 12:00 PM [facility] Monocytes Absolute Manual 0.46 0.20 - 1.00 K/mcL LAB HEMETOLOGY METHOD 10/02/2024 12:00 PM EDT [facility] Eosinophils Absolute Manual 0.00 0.00 - 0.50 K/mcL LAB HEMETOLOGY METHOD 10/02/2024 12:00 PM EDT [facility] Basophils Absolute Manual 0.00 0.00 - 0.20 K/mcL LAB HEMETOLOGY METHOD 10/02/2024 12:00 PM EDT [facility] Rbc Morphology Present( A) Consistent with indices, Normal for [facility] LAB HEMETOLOGY METHOD 10/02/2024 12:00 PM EDT [facility] Platelet Morphology - WAM See Note(A) Normal LAB HEMETOLOGY METHOD 10/02/2024 12:00 PM EDT [facility] Comment:PLT: Normal Ovalocytes Present 5 - 10%(A) (none) LAB HEMETOLOGY METHOD 10/02/2024 12:00 PM EDT [facility] Blood Venous blood specimen / Unknown Venipuncture / Unknown 10/02/2024 8:13 AM EDT 10/02/2024 11:23 AM EDT Jefry Richmond MD LAB BLOOD ORDERABLES Final Result [facility] [address] [place] [address], * (ABNORMAL) CBC auto differential (10/02/2024 8:13 AM EDT) WBC 4.6(L) 4.8 - 10.8 K/mcL LAB HEMETOLOGY METHOD 10/02/2024 12:00 PM EDT [facility] RBC 2.40(L) 3.80 - 4.80 M/mcL LAB HEMETOLOGY METHOD 10/02/2024 12:00 PM EDT [facility] Hemoglobin 10.5(L) 11.5 - 16.0 g/dL LAB HEMETOLOGY METHOD 10/02/2024 12:00 PM EDT [facility] Hematocrit 33.4(L) 35.0 - 47.0 % LAB HEMETOLOGY METHOD 10/02/2024 12:00 PM T [facility] MCV 138.6(H) 79.0 - 98.0 FL LAB HEMETOLOGY METHOD 10/02/2024 12:00 PM EDT [facility] MCH 43.6(H) 27.0 - 32.0 pcg LAB HEMETOLOGY METHOD 10/02/2024 12:00 PM EDT [facility] MCHC 31.4(L) 32.0 - 37.0 g/dL LAB HEMETOLOGY METHOD 10/02/2024 12:00 PM [facility] RDW 13.8 11.0 - 15.0 % LAB HEMETOLOGY METHOD 10/02/2024 12:00 PM EDT [facility] Platelets 282 130 - 400 K/mcL LAB HEMETOLOGY METHOD 10/02/2024 12:00 PM [facility] MPV 11.2(H) 7.0 - 11.0 FL LAB HEMETOLOGY METHOD 10/02/2024 12:00 PM [facility] NRBC 0.0 <1.0 % LAB HEMETOLOGY METHOD [facility] NRBC Absolute 0.00 <0.10 K/mcL LAB HEMETOLOGY METHOD 10/02/2024 12:00 PM [facility] Blood Venous blood specimen / Unknown Venipuncture / Unknown 10/02/2024 8:13 AM EDT 10/02/2024 11:23 AM EDT us Jefry Richmond MD LAB BLOOD ORDERABLES Final Result [facility] [address] [place] [address], * Comprehensive metabolic panel (07/01/2024 8:17 AM EST) Sodium 137 133 - 145 mmol/L LAB CHEMISTRY METHOD 07/01/2024 11:52 AM [facility] Potassium 4.4 3.5 - 5.5 mmol/L LAB CHEMISTRY METHOD 07/01/2024 11:52 AM [facility] Chloride 105 96 - 110 mmol/L LAB CHEMISTRY METHOD 07/01/2024 11:52 AM [facility] CO2 29 21 - 32 mmol/L LAB CHEMISTRY METHOD 07/01/2024 11:52 AM [facility] Anion Gap 3 3 - 11 LAB CHEMISTRY METHOD 07/01/2024 11:52 AM [facility] Glucose 93 70 - 100 mg/dL LAB CHEMISTRY METHOD 07/01/2024 11:52 AM [facility] BUN 16 5 - 25 mg/dL LAB CHEMISTRY METHOD 07/01/2024 11:52 AM [facility] Creatinine 0.70 0.50 - 1.10 mg/dL LAB CHEMISTRY METHOD 07/01/2024 11:52 AM [facility] eGFR 91 >=60 mL/min/1. 73m2 LAB CHEMISTRY METHOD 07/01/2024 11:52 AM [facility] Comment:Calculation based on the Chronic Kidney Disease Epidemiology Collaboration (CKD-EPI) equation refit without adjustment for race. BUN/Creatinine Ratio 22.9 LAB CHEMISTRY METHOD 07/01/2024 11:52 AM [facility] Calcium 9.1 8.5 - 10.5 mg/dL LAB CHEMISTRY METHOD 07/01/2024 11:52 AM [facility] AST (SGOT) 21 10 - 42 unit/L LAB CHEMISTRY METHOD 07/01/2024 11:52 AM [facility] ALT (SGPT) 23 10 - 60 unit/L LAB CHEMISTRY METHOD 07/01/2024 11:52 AM EST [facility] Alkaline Phosphatase 62 42 - 121 unit/L LAB CHEMISTRY METHOD 07/01/2024 11:52 AM [facility] Total Protein 7.6 6.0 - 8.0 g/dL LAB CHEMISTRY METHOD 07/01/2024 11:52 AM EST [facility] Albumin 4.2 3.2 - 5.0 g/dL LAB CHEMISTRY METHOD 07/01/2024 11:52 AM [facility] Total Bilirubin 1.1 0.0 - 1.4 mg/dL LAB CHEMISTRY METHOD 07/01/2024 11:52 AM [facility] Blood Venous blood specimen / Unknown Venipuncture / Unknown 07/01/2024 8:17 AM EST 07/01/2024 11:28 AM EST us Mars Rodriguez MD LAB BLOOD ORDERABLES Final Resul t [facility] [address] [place] [address], * JAYLEN SCREENING DIGITAL (07/17/2023 11:15 AM EDT) Anatomical Region Laterality Modality Mammography 07/17/2023 9:35 AM EDT Narrative 07/17/2023 11:15 AM EDT [facility] Diagnostic Imaging Department [address] [place] [address] Patient: SUKI CARDOZA./Age/Sex: 1950 - 73 - F Unit#: [id number] [facility] Ordering Physician: MARS RODRIGUEZ MD [facility] Screening Digital - 07/17/23 - [id number] Report Status:Signed EXAM: [facility] Screening Digital EXAM DATE AND TIME: 07/17/2023 9:52 AM HISTORY: Annual screening COMPARISON: Multiple exams dating back to 2010 TECHNIQUE: Bilateral digital breast tomosynthesis was performed in the CC and MLO projections. Computer aided detection with myseekit 3D 3.1 was employed. TISSUE DENSITY: b. There are scattered areas of fibroglandular density. FINDINGS: No suspicious masses, grouped microcalcifications, or areas of architectural distortion are seen. The skin and vascularity are unremarkable. IMPRESSION: Stable mammographic appearance of the breasts. No evidence of malignancy is seen. A negative mammogram in the presence of a clinically suspicious palpable abnormality does not preclude the possibility of malignancy or alter the indications for biopsy. BI-RADS: Category 1: Negative RECOMMENDATION(S): 1: Routine screening mammogram BILATERAL in 1 year. 3341F, 7025F Dictating Physician: ELIZABETH SHEA MD Electronically Signed by: ELIZABETH SHEA MD Dic Date/Time: 07/17/231113 Sign date/Time: 07/17/23 111 Procedure Note Elizabeth Shea MD - 12/23/2023 [facility] Diagnostic Imaging Department [address] [place] [address] [id number] Patient: SUKI CARDOZA/Age/Sex: 1950 - 73 - F Unit#: [id number] Location/Status: SPDIMAM/REG CLI Mnemonic/Ordering Site: [facility] Ordering Physician: MARS RODRIGUEZ MD [facility] Screening Digital - 07/17/23 - [id number] Report Status:Signed EXAM: [facility] Screening Digital EXAM DATE AND TIME: 07/17/2023 9:52 AM HISTORY: Annual screening COMPARISON: Multiple exams dating back to 2010 TECHNIQUE: Bilateral digital breast tomosynthesis was performed in the CCand MLO projections. Computer aided detection with myseekit 3D 3.1was employed. TISSUE DENSITY: b. There are scattered areas of fibroglandular density. FINDINGS: No suspicious masses, grouped microcalcifications, or areas ofarchitectural distortion are seen. The skin and vascularity are unremarkable. IMPRESSION: Stable mammographic appearance of the breasts. No evidence of malignancyis seen. A negative mammogram in the presence of a clinically suspicious palpable abnormality does not preclude the possibility of malignancy or alter the indications for biopsy. BI-RADS: Category 1: Negative RECOMMENDATION(S): 1: Routine screening mammogram BILATERAL in 1 year. 3341F, 7025F Dictating Physician: ELIZABETH SHEA MD Electronically Signed by: ELIZABETH SEHA MD Dic Date/Time: 07/17/23 1114 Sign date/Time: 07/17/23 1115 Mars Rodriguez MD IMG BI PROCEDURES Final Result from Last 3 Months or Most Recently Relevant to Health Maintenance Insurance [employer] MEDICARE Care Teams Instructional Design Consultant Relationship Specialty Start Date End Date Mars Rodriguez MD [address] [place] [address] PCP - General 04/25/20
== END 2024-12-09 08:47 | disposition home or self-care (01) ==
LOC: HO.HMCC 08:11
PROVIDERS: PCP Internal Medicine; Visit Provider Internal Medicine
DX: Z00.01 Encounter for general adult medical examination with abnormal findings (principal); E78.9 Disorder of lipoprotein metabolism, unspecified; D47.3 Essential (hemorrhagic) thrombocythemia; I10 Essential (primary) hypertension

== ENCOUNTER → 2024-12-09 08:10 | Outpatient (BNVA) | payer MEDICARE, SELFPAY | PROVIDERS: PCP Internal Medicine; Visit Provider Internal Medicine | DX: Z00.01 Encounter for general adult medical examination with abnormal findings (principal); E78.9 Disorder of lipoprotein metabolism, unspecified; I10 Essential (primary) hypertension; D47.3 Essential (hemorrhagic) thrombocythemia | CPT/HCPCS: 99397 ==